=== PATIENT | female | born 1950 | race Caucasian/White ===

== ENCOUNTER 2016-09-04 12:21 | Inpatient (IN) | payer MEDICARE, MEDICAID ==
[~2016-09-04] VITALS: Ht 162.6 cm; Wt 42.0 kg
[2016-09-04] VITALS (8 sets, daily range): BP systolic 57–168; BP diastolic 43–106; PULSE 98–107; RESP 18–32; O2SAT 93–98
[2016-09-04] MEDS: Propofol Inj 1,000,000 MCG in IV Premix 1 EACH IV SCH
[~2016-09-04 12:21] MED LIST: CHOL100045 PO; ESTR1TAB5 PO; IBUP800T28 PO; KLO1T PO; MELA5TAB14 PO; MULT1CAP45 PO; OMEP40CA36 PO; OXYC1TAB91 PO; TRAZ-115 PO; VENL75TA3 PO; ZOLP10TA5 PO; diphenHYDramine PO
--- NOTE | 2016-09-04 12:27 | ED.REPORT ---
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 She has been treated with IVIG in the past with improvement of her neurologic symptoms. The patient is unable to provide a substantial history at this time. Neurologist: Dr. Moore Nursing Notes Stated Complaint: CONFUSION Nursing Notes Reviewed: Yes Allergies: Coded Allergies: No Known Allergies (Unverified Allergy, Unknown, 09/04/16) Scheduled Cholecalciferol (Vitamin D3) (Vitamin D) 1,000 Unit Capsule 1,000 UNIT PO DAILY Estrogens Conj/Medroxyprog 0.625-2.5 mg (Prempro 0.625-2.5 mg) 1 Each Tablet 1 TABLET PO DAILY Ibuprofen (Ibuprofen) 800 Mg Tablet 800 MG PO BID Melatonin (Melatonin) 5 Mg Tablet 20 MG PO HS Multivitamin with Minerals (Myvitalife) 1 Each Capsule 1 EACH PO DAILY Oxycodone HCl/Acetaminophen (Endocet 10-325 mg Tablet) 1 Each Tablet 1 EACH PO QID Trazodone (Trazodone) 50 Mg Tablet 50 MG PO HS Venlafaxine (Venlafaxine) 75 Mg Tablet 150 MG PO BID Zolpidem (Zolpidem) 10 Mg Tablet 5-10 MG PO HS Scheduled PRN ([diphenHYDramine]) 50 MG CAPSULE 50 MG PO HS PRN PRN Insomnia Clonazepam (Clonazepam) 1 Mg Tablet 0.5-1 MG PO BID PRN PRN For Anxiety Omeprazole (Omeprazole) 40 Mg Capsule.dr 40 MG PO BID PRN PRN For Dyspepsia or Heartburn General Time Seen by MD: 12:22 Chief Complaint Altered mental status Hx Obtained From: EMS Unable to Obtain Hx: Patient condition, Mental status Arrived By: Ambulance Sudden in Onset?: No Onset Occurred: Onset unknown Symptom Duration: Duration unknown Recent Healthcare: No recent hospitalization Similar Sx Previous: No Past Medical History Past Medical History Notes: Neurologist: Dr. Moore PCP: Dr. 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 Past Surgical History None Family History Noncontributory Smoking History Never Smoker Social History Alcohol Use: 1-3 per day Drug Use: Denies drug use Other Social History: Good social support, Lives alone, Local resident Ambulatory Status Independent Review of Systems Unable to Obtain ROS Patient condition, Mental status Full Review of Systems Neurologic: Reports: Confusion Physical Exam Vital Signs Vital Signs Date Time Temp Pulse Resp B/P Pulse Ox O2 Delivery O2 Flow Rate FiO2 09/04/16 12:37 36.7 98 18 160/97 93 Room Air Initial VS: Reviewed Head / Eyes: Atraumatic, Normocephalic, PERRL ENT: Mucous membranes moist, Conjunctiva normal, No scleral icterus Neck: Supple, Non-tender, Full range of motion Cardiovascular: Regular rate & rhythm, Heart sounds normal, Intact distal pulses Abdomen / GI: Soft, Non-tender, No guarding, No rebound, No distention Lymphatic: No lymphadenopathy Skin: Warm, Dry, No cyanosis General/Constitutional: Awake, Alert Appearance / Presentation: Positive: Cachectic She can't provide much history. No sign of trauma. Respiratory / Chest: Breath sounds = bilat, No respiratory distress, No rales, No rhonchi, No wheezing Diminished Breath Sounds: Positive: Decreased bilateral Upper Extremities Upper Extremity / MS: Neurologic intact, Vascular intact Significant muscle atrophy to both upper extremities. Lower Extremity / Pelvis / MS: Neurologic intact, Vascular intact Significant muscle atrophy to both lower extremities. She repeatedly points to her right hip but is unable to provide any additional history. NEURO: Her speech is minimally fluent and is difficult to understand. She has no lateralizing symptoms. Interpretation & Diagnostics Lab Results Interpretation Result Diagram: 09/04/16 1308 09/04/16 1308 Test 09/04/16 13:00 09/04/16 13:08 Urine Color Straw (YELLOW) Urine Appearance Hazy (CLEAR,HAZY) Urine pH 7.0 (5.0-8.0) Urine Specific [place] 1.020 (1.003-1.035) Urine Protein Negativemg/dL (NEG,TRACE) Urine Glucose (UA) Negativemg/dL (NEGATIVE) Urine Ketones 80mg/dL (NEGATIVE) Urine Occult Blood Moderate (NEGATIVE) Urine Nitrite Positive (NEGATIVE) Urine Bilirubin Negative (NEGATIVE) Urine Urobilinogen Normalmg/dL (NORMAL) Urine Leukocyte Esterase Small (NEGATIVE) Urine RBC 3-10/hpf (0-2) Urine WBC 6-10/hpf (0-5) Urine Epithelial Cells Few/hpf (NONE-MOD) Urine Crystals Amorphous urates (NONE Urine Bacteria Many/hpf (NONE-FEW) Urine Hyaline Casts None/lpf (NONE) Urine Granular Casts Occasional (NONE SEEN) Urine Waxy Casts None seen (NONE SEEN) Urine Red Blood Cell Casts None seen (NONE SEEN) Urine White Blood Cell Casts None seen (NONE SEEN) Urine Mucus None seen (None Seen) Urine Trichomonas None seen (NONE SEEN) Urine Yeast None (NONE SEEN) Urinalysis Comment None Urine Culture Reflexed Indicated White Blood Count 6.3th/mm3 (3.8-10.1) Red Blood Count 4.76mil/mm3 (3.90-5.20) Hemoglobin 14.4g/dL (12.0-15.6) Hematocrit 45.7% (35.0-46.0) Mean Corpuscular Volume 96.0fL (81-100) Mean Corpuscular Hemoglobin 30.3pg (27.0-35.0) Mean Corpuscular Hemoglobin Concent 31.5% (32.0-37.0) Red Cell Distribution Width 13.2% (12.3-15.4) Platelet Count 267bil/L (150-400) Neutrophils (%) (Auto) 84.3% (40-74) Lymphocytes (%) (Auto) 9.1% (14-46) Monocytes (%) (Auto) 6.0% (4-12) Eosinophils (%) (Auto) 0.2% (0-5) Basophils (%) (Auto) 0.2% (0-3) Sodium Level 141mEq/L (134-144) Potassium Level 3.4mEq/L (3.5-5.2) Chloride Level 94mEq/L (97-108) Carbon Dioxide Level 35mmol/L (18-29) Blood Urea Nitrogen 14mg/dL (8-27) Creatinine < 0.30mg/dL (0.57-1.00) Estimat Glomerular Filtration Rate 317mL/min (>59) Glucose Level 94mg/dL (60-99) Calcium Level 8.8mg/dL (8.5-10.1) Total Bilirubin 0.2mg/dL (0.0-1.2) Aspartate Amino Transf (AST/SGOT) 29U/L (0-50) Alanine Aminotransferase (ALT/SGPT) 23U/L (0-32) Alkaline Phosphatase 73U/L (25-165) Total Protein 7.7g/dL (6.4-8.4) Albumin 3.6g/dL (3.4-5.0) ECG Interpretation ECG Interpretation: Normal sinus rhythm with a rate of 98 Time: 13:17 Interpreted by: ED physician X-Ray Chest Interpretation Chest Xray Interpretation: IMPRESSION: Right medial lung base pneumonia. Follow up plain films of the chest are recommended to ensure resolution, and to exclude underlying or central malignancy. Dictated by: James Ibarra M.D. on 09/04/2016 at 13:27 Interpretation / Wet Read by: Interpret - Radiologist CT Head Interpretation IMPRESSION: No acute process. Dictated by: James Ibarra M.D. 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 She has been treated with IVIG in the past with improvement of her neurologic symptoms. She is followed by Dr. Moore. History is extremely limited due to patient's altered mental status. Upon arrival the patient is borderline tachycardic though otherwise afebrile. She is stating at 90% on room air requiring 2L supplemental oxygen. This is not her baseline. CXR shows right lung pneumonia CT head negative LABS: CBC unremarkable, BUN 14, creatinine 0.3, potassium 3.4, CO2 35, UA concerning for UTI. The patient's underlying neurologic disease and underlying apparent respiratory failure I opted to obtain NIF which was -12 (normal 20). That being said, the patient was noncooperative with obtaining NIF and continued to have good oxygen saturation on only 2 L by nasal cannula. I considered prophylactic intubation due to concern for impending respiratory failure however during the patient's emergency department course she became significantly more awake yelling at nurse 's and pulling out her IVs. Given this change in her behavior and seemed to is not in any immediate impending respiratory failure and therefore I opted to obtain arterial blood gases into for intubation for the moment. I discussed the patient with her neurologist Dr. moore who agreed with plan for admission and close respiratory observation. Given the patient's history and apparent pneumonia I initiated vancomycin and Zosyn for coverage of healthcare associated pneumonia. The patient remained hemodynamically stable. She was transferred to the critical care unit for further management and close observation. Due to her agitation and ripping out IVs she received 2 mg of intramuscular Haldol here in the emergency department with good effect. Source of Hx: Old records, EMS Consultation #1: Referral / Consult Name: Kj Moore MD Consulted With: Neurology Call Returned at: 13:56 Pressroom Worker: Agrees with eval, Agrees with plan Consultation #2: Referral / Consult Name: Paresh James MD Consulted With: Hospitalist Requested Call at: 13:42 Call Returned at: 14:37 Pressroom Worker: Will see patient, Agrees with eval, Agrees with plan, Accepts admit Counseled Regarding: Diagnosis, Lab results, Need for admission Discharge & Departure Primary Impression: Hypoxia Additional Impressions: Weakness Pneumonia Pneumonia type: due to unspecified organism Laterality: right Lung location : middle lobe of lung Qualified Code: J18.9 - Pneumonia, unspecified organism Agitation Respiratory failure Chronicity: unspecified Respiratory failure complication: hypercapnia Qualified Code: J96.92 - Respiratory failure, unspecified with hypercapnia Demyelinating nervous system disease or syndrome Disposition: ADMITTED TO HOSPITAL Discharge Condition All VS Reviewed: Yes Condition: Stable Referrals: Lennox Penaloza MD Crit Care Except Billable Proc Time Spent: 135-164 minutes Services Performed: Patient management by me, Time spent at bedside, Reviewing test results, Reviewing imaging, Discussing patient care, Documentation in record, Time with fam/surrogate Scribe Attestation Portions of this note were transcribed by Magda Olson. I, Dr. Nina personally performed the history, physical exam and medical decision-making; I reviewed and confirmed the accuracy of the information in the transcribed note. Signed by: Zully Del Rio, 09/04/2016 and 1520. copies to: Lennox Penaloza MD, Beck O MD Sep 04, 2016 12:27 Magda Olson Sep 04, 2016 12:30 Portions of this note were transcribed by Magda Olson. I, Dr. Nina personally performed the history, physical exam and medical decision-making; I reviewed and confirmed the accuracy of the information in the transcribed note. Signed by: Zully Del Rio, 09/04/2016 and 1520. copies to: Lennox Penaloza MD, Beck O MD Sep 04, 2016 12:27 Magda Olson Sep 04, 2016 12:30
[2016-09-04 13:21] LABS: BASOPHILS % (AUTO) 0.2 % (0-3); EOSINOPHILS % (AUTO) 0.2 % (0-5); Mean Corpuscular Hemoglobin 30.3 pg (27.0-35.0); NEUTROPHILS % (AUTO) 84.3 % (40-74); Platelet Count 267 bil/L (150-400)
--- NOTE | 2016-09-04 13:29 | DRSVH ---
PROCEDURE: X-RAY CHEST ONE VIEW, PORTABLE ([id number]) INDICATIONS: CONFUSION TECHNIQUE: One view of the chest was acquired. COMPARISON: None. FINDINGS: Surgical changes and devices: None. Lungs and pleura: No pleural effusions or pneumothorax. Patchy opacity at the right medial lung base . Mediastinum: Mediastinal contours appear normal. Heart size is normal. Bones and chest wall: No suspicious bony lesions. Overlying soft tissues appear unremarkable. IMPRESSION: Right medial lung base pneumonia. Follow up plain films of the chest are recommended to e nsure resolution, and to exclude underlying or central malignancy. Dictated by: James Ibarra M.D. on 09/04/2016 at 13:27 Approved by: James Ibarra M.D. on 09/04/2016 at 13:28
[2016-09-04] MEDS ORDERED: 0.9% Sodium Chloride 1,000 ML IV ONE ×2 (13:41→14:45)
[2016-09-04] MEDS ORDERED: Vancomycin Dose per Pharmacist XX ONE (13:45)
[2016-09-04] MEDS ORDERED: Piperacillin-Tazo 3.375 Gm Inj 3.375 GM in Dextrose 5% Minibag Plus 50 ML IV ONE (13:45)
--- NOTE | 2016-09-04 14:00 | PCM.CONPHA ---
Subjective Requesting Provider: Edgar Nina MD Reason for Pharmacy Consult: Vancomycin Dosing Assessment/Plan Assessment/Plan Vancomycin for empiric therapy in the ED for patient with mental status change, who has also received Zosyn 3.375Gm IV x 1. Wt=43Kg, serum creatinine <0.3 ( patient has demyelinating disease). WBC=6.3 Will give Vancomycin 1 Gram IV x 1. Pharmacy will follow if ordered when patient admitted. Shaniqua Castro [facility] Sep 04, 2016 14:00
[2016-09-04] MEDS ORDERED: Vancomycin 1 Gm/200 mL D5W Premix IV PRN (14:05)
--- NOTE | 2016-09-04 14:05 | DRSVH ---
PROCEDURE: CT BRAIN WITHOUT CONTRAST ([id number]) INDICATIONS: altered mental status TECHNIQUE: Noncontrast 4.5 mm thick angled axial sections acquired from the foramen magnum to the vertex, with c oronal reformats. COMPARISON: [facility], CT, CT BRAIN WO CON, 06/06/2016, 0:09. FINDINGS: Image quality: Excellent. CSF spaces: Basal cisterns are patent. No extra-axial fluid collections. The ventricles are symmet jim in size and shape. Brain: No intracranial bleeds or masses. There is cerebral volume loss for age, with resultant vent ricular and sulcal prominence. There are periventricular and deep white matter chronic small vessel ischemic changes. There is intracranial internal carotid artery atherosclerosis. Skull and face: Calvarium and visualized facial bones appear intact, without suspicious lesions. Sinuses: Visualized sinuses and mastoids are clear. IMPRESSION: No acute process. Dictated by: James Ibarra M.D. on 09/04/2016 at 14:03 Approved by: James Ibarra M.D. on 09/04/2016 at 14:04
[2016-09-04 14:15] LABS: APPEARANCE,URINE HAZY (CLEAR,HAZY); COLOR,URINE STRAW (YELLOW); OCCULT BLOOD,URINE MODERATE (NEGATIVE); UROBILINOGEN,URINE NORMAL (NORMAL)
[2016-09-04] MEDS: Haloperidol 5 mg/mL Inj IM PRN ×2 (14:35→15:38)
[2016-09-04] MEDS ORDERED: Alum-Mag Hydrox-Simeth 30 mL Suspension PO PRN ×2 (15:05)
[2016-09-04] MEDS ORDERED: Ondansetron 2 mg/mL 2 mL Inj IVPUSH PRN ×2 (15:05)
[2016-09-04] MEDS ORDERED: Polyethylene Glycol (PEG) 17 Gm Powder PO PRN ×2 (15:05)
[2016-09-04 15:50] LABS: Ammonia 78 ug/dL (18-53)
--- NOTE | 2016-09-04 15:55 | ABG ---
DateTimeAnalyzed 15:49:00 -_ pH ____7.330 - 7.350 7.450 pCO2 ___70.3__ -mmHg 35.0 45.0 pO2 ___98.3__ -mmHg 69.0 116 HCO3- ___36.0__ -mmol/L 22.0 26.0 ABE ____8.1__ -mmol/L -2.0 2.0 tHb ___12.5__ -g/dL O2Hb ___95.8__ -% COHb ____1.2__ -% MetHb ____0.9__ -% sO2 ___97.9__ -% FIO2 ___28.0__ -% Drawn By MT - Date/Time Notified____ 15:54:00 -_ Oxygen Device 1 __CANNULA - Notified By MT - Notified Whom ___Dr. [place] - B 767 -mmHg tO2 ___16.9__ -Vol%
[2016-09-04] MEDS ORDERED: ACET325C PO (17:05)
[2016-09-04] MEDS ORDERED: TAMS0.4C98 PO (17:05)
[2016-09-04] MEDS: Vancomycin Dose per Pharmacist XX SCH (18:20)
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
[2016-09-04] MEDS ORDERED: Vancomycin Inj 1,000 MG in IV Premix 1 EACH IV ONE (19:30)
[2016-09-04] MEDS ORDERED: 0.9% Sodium Chloride 250 ML ONE (19:30)
--- NOTE | 2016-09-04 19:37 | PCM.CONPHA ---
Subjective Requesting Provider: Kaia Warner DO Reason for Pharmacy Consult: Vancomycin Dosing Assessment/Plan Assessment/Plan Vancomycin for healthcare associated pneumonia with goal trough of 15-20: Ht 64 inches Wt 46.5K Sr Cr<0.3 (demyelinating disease) so 0.8 used for calculations. Creatinine clearance estimated at 49ml/min. WBC=6.3 Patient also on Zosyn. Vancomycin 1 Gram IV load not given in ER, but given on floor instead. Subsequent dosing is 750mg IV daily, which may produce a trough at the lower end of the goal, depending upon true renal function. A trough has been ordered for 192909/07/16. A pharmacist will adjust dosing as necessary. Shaniqua Castro [facility] Sep 04, 2016 19:37
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
[2016-09-04] MEDS ORDERED: Pantoprazole 40 mg ER24 Tablet PO PRN (19:55)
[2016-09-04] MEDS ORDERED: VENLAFAXINE 150 MG PO SCH (20:30)
[2016-09-04] MEDS: oxyCODONE-Acetamin 10-325 mg Tablet PO SCH (21:30)
[2016-09-04] MEDS ORDERED: 0.9% Sodium Chloride 1,000 ML ONE (23:21)
[2016-09-05] VITALS (14 sets, daily range): BP systolic 96–124; BP diastolic 68–80; PULSE 85–104; RESP 10–14; O2SAT 95–100
[2016-09-05 00:01] LABS: BASOPHILS % (AUTO) 0 % (0-3); EOSINOPHILS % (AUTO) 0 % (0-5); MONOCYTES % (AUTO) 2.6 % (4-12); Mean Corpuscular Hemoglobin 29.8 pg (27.0-35.0); Mean Corpuscular Volume 96.6 fL (81-100); Platelet Count 276 bil/L (150-400)
--- NOTE | 2016-09-05 00:19 | ABG ---
DateTimeAnalyzed 00:14:00 -_ pH ____7.511 - 7.350 7.450 pCO2 ___37.3__ -mmHg 35.0 45.0 pO2 342 -mmHg 69.0 116 HCO3- ___29.6__ -mmol/L 22.0 26.0 ABE ____6.6__ -mmol/L -2.0 2.0 tHb ___12.3__ -g/dL O2Hb ___97.9__ -% COHb ____1.1__ -% MetHb ____0.9__ -% sO2 ___99.9__ -% FIO2 __100.0__ -% PRVC 20 - PEEP ____5.0__ -cmH2O Vt __380.0__ -L Drawn By blf - Date/Time Notified____ 00:19:00 -_ Spontaneous_RR ___20.0__ -b/min Oxygen Device 1 VENTILATOR - Notified By blf - Notified Whom Arnoldo Elma RN -____ B 768 -mmHg tO2 ___17.8__ -Vol% Lennox test N/A -
[2016-09-05 00:32] LABS: Phosphorus 2.2 mg/dL (2.5-4.9)
[2016-09-05] MEDS: Chlorhexidine 0.12% 15 mL Oral Solution MT SCH ×6 (00:48→20:35)
--- NOTE | 2016-09-05 01:02 | ER ---
[address] [address] EMERGENCY DEPT ADMIT NOTE PATIENT: CAPO THOMPSON : 1950 MR#: [id number] ADMIT: 09/04/2016 JOB ID: [id number] PROCEDURE: Endotracheal intubation. DESCRIPTION OF PROCEDURE: I was asked to see this patient urgently by the Medicine attending who found her in agonal respiration on evaluation. She requires endotracheal intubation and is unconscious at this point. She was bagged up to 100% saturation without difficulty. After determining that her potassium is normal, she received etomidate 20 mg IV and then succinylcholine 120 mg IV for rapid sequence induction. She had good relaxation, and good induction. A 7.5 tube was placed under direct visualization through the cords without difficulty, and placement verified by end-tidal CO2 and auscultation. The balloon was inflated. It was secured in place at 22 cm at the corner of the mouth. She tolerated this well and is awaiting confirmatory x-ray at this time. Care was returned to the medicine service.
[2016-09-05] MEDS ORDERED: 0.9% Sodium Chloride 1,000 ML IV SCH (01:05)
[2016-09-05] MEDS: Piperacillin-Tazo 3.375 Gm Inj 3.375 GM in Dextrose 5% Minibag Plus 50 ML IV SCH ×3 (01:07→16:43)
[2016-09-05] MEDS: fentaNYL 2,500 mCg/250 mL 2,500 MCG in IV Premix 1 EACH IV SCH (01:17)
--- NOTE | 2016-09-05 02:02 | NUR ---
Transfer note/intubation: Pt was transferred to room 2011 at 2330 per CCU bed. Pt was being ventilated by RT with BVM. Pt placed on monitor shows ST/SR with spo2 of high 80 to low 90s and jumped up to 100% after being bagged for short period prior to getting sedated with 120mg of sucs and 20mg of etomidate. ED doctor intubated with 7.5 ETT taped at 22cm at the teeth. Pt was given NS bolus of 1000mls and started on propofol and fentanyl gtts for sedation. OG was placed with small creamy yellow drainage and mcwilliams inserted with good urine return. Restraints applied to bilateral wrist.
[2016-09-05 02:56] LABS: Mean Corpuscular Hemoglobin 29.5 pg (27.0-35.0); Mean Corpuscular Volume 95.7 fL (81-100)
[2016-09-05 04:02] LABS: Magnesium 1.8 mg/dL (1.6-2.6)
[2016-09-05] MEDS ORDERED: Potassium Phos (mEq) Inj 40 MEQ in Dextrose 5% 500 ML IV ONE (04:20)
--- NOTE | 2016-09-05 04:37 | ABG ---
DateTimeAnalyzed 04:33:00 -_ pH ____7.522 - 7.350 7.450 pCO2 ___34.7__ -mmHg 35.0 45.0 pO2 ___94.7__ -mmHg 69.0 116 HCO3- ___28.3__ -mmol/L 22.0 26.0 ABE ____5.7__ -mmol/L -2.0 2.0 tHb ___12.8__ -g/dL O2Hb ___96.7__ -% COHb ____1.1__ -% MetHb ____1.0__ -% sO2 ___98.8__ -% FIO2 ___60.0__ -% PRVC 16 - PEEP ____5.0__ -cmH2O Vt __350.0__ -L Drawn By blf - Date/Time Notified____ 04:37:00 -_ Spontaneous_RR ___16.0__ -b/min Oxygen Device 1 VENTILATOR - Notified By blf - Notified Whom JOAQUIN EVARISTO RN -____ B 767 -mmHg tO2 ___17.5__ -Vol% Lennox test N/A -
[2016-09-05] MEDS: oxyCODONE-Acetamin 10-325 mg Tablet PO SCH ×4 (05:57→20:29)
[2016-09-05] MEDS ORDERED: KCl 40 mEq/D5W 500 mL 40 MEQ in IV Premix 500 EACH IV ONE (06:45)
[2016-09-05] MEDS: MedroxyPROGESTERone 5 mg Tablet PO SCH (07:50)
[2016-09-05] MEDS: Vancomycin Dose per Pharmacist XX SCH (07:51)
--- NOTE | 2016-09-05 08:10 | DRSVH ---
PROCEDURE: X-RAY CHEST ONE VIEW, PORTABLE ([id number]) INDICATIONS: intubation TECHNIQUE: One view of the chest was acquired. COMPARISON: [facility], CR, XR CHEST 1VW (PORTABLE), 09/05/2016, 8:03. [facility], CR, XR CHEST 1VW (PORTABLE), 09/04/2016, 12:54. FINDINGS: Surgical changes and devices: ETT present tip projected 3.9 cm of the benedicto. Serpiginous metallic r adiodensity projected over the left shoulder and upper lateral chest likely external to the patient. Lungs and pleura: No pleural effusions or pneumothorax. Lungs are clear. Right hemidiaphragm is el evated. Mediastinum: Mediastinal contours appear normal. Heart size is normal. Bones and chest wall: No suspicious bony lesions. Overlying soft tissues appear unremarkable. Ther e is a large amount of air within the stomach. IMPRESSION: Placement of ETT. No definite acute cardiopulmonary process. Dictated by: Deandre Russell Katie Interpreted: Wm Todd MD on 09/05/2016 at 8:08 Transcribed by: LAYNE on 09/05/2016 at 8:10 Approved by: Wm Todd M.D. on 09/05/2016 at 9:22
[2016-09-05] MEDS ORDERED: Non-Formulary Medication (Cholecalciferol (Vitamin D3) (Vitamin D) 1,000 UNIT) PO SCH (08:30)
[2016-09-05] MEDS ORDERED: [UNRECOGNIZED DRUG - OTHER] PO SCH (08:30)
[2016-09-05] MEDS ORDERED: MULTIVITAMIN WITH MINERALS PO SCH (08:30)
[2016-09-05] MEDS ORDERED: CONJUGATED ESTROGENS PO SCH (08:30)
[2016-09-05] MEDS ORDERED: MEDROXYPROGESTERONE PO SCH (08:30)
--- NOTE | 2016-09-05 08:44 | DRSVH ---
PROCEDURE: X-RAY CHEST ONE VIEW, PORTABLE ([id number]) INDICATIONS: Post intubation to verify ETT placement TECHNIQUE: One view of the chest was acquired. COMPARISON: [facility], CR, XR CHEST 1VW (PORTABLE), 09/04/2016, 23:32. FINDINGS: Surgical changes and devices: ETT tube tip projected 5.7 cm above the benedicto. Nasogastric tube has b een placed tube tip projected over the gastric fundus. Lungs and pleura: No pleural effusions or pneumothorax. Medial left basilar airspace opacity presen t otherwise lungs are clear and hyperinflated. Mediastinum: Mediastinal contours appear normal. Heart size is normal. Bones and chest wall: No suspicious bony lesions. Overlying soft tissues appear unremarkable. IMPRESSION: 1. Medial left basilar atelectasis versus aspiration or pneumonia. Correlate clinically. Dictated by: Deandre Russell [facility] Interpreted: Eileen Starkey MD on 09/05/2016 at 8:41 Transcribed by: MARIA FERNANDA on 09/05/2016 at 8:43 Approved by: Eileen Starkey MD, PhD on 09/05/2016 at 17:04
[2016-09-05] MEDS: Propofol Inj 1,000,000 MCG in IV Premix 1 EACH IV SCH ×2 (08:50→23:23)
[2016-09-05] MEDS: Heparin 5,000 Unit/mL Inj SUBQ SCH ×2 (08:50→16:43)
[2016-09-05] MEDS: Famotidine Inj 20 MG in IV Premix 1 EACH IV SCH ×2 (09:41→20:35)
--- NOTE | 2016-09-05 09:54 | NUR ---
NUTRITION ASSESSMENT Assess: 66 YO F admitted to CCU for hypoxia, weakness, altered mental status, and PNA requiring intubation. Enteral feeding to start today per verbal order Dr. Purcell. Plan for CT today and possible PS trial per CCU rounds. PMHX: Neuromuscular demyelinating polyneuropathy, multiple falls, dehydration, major depressive disorder, insomnia. DIET: NPO. LABS: Na 146, K+ 2.5, Glu 115 MEDICATIONS: Fentanyl, Propofol at ~ 8 ml/hr providing 211 kcal/day. GI: 2 BM 09/04. SKIN: Red, non-blanchable area on medial buttock per notes. Wound eval pending. WEIGHT: 46.5 kg, BMI 17.6 kg/mg2 = underweight, Admit wt: 46.5 kg, IBW: 54.5 kg (85.3%) ESTIMATED NEEDS: Underweight/Wound/Vent. Calories: 930-1395 kcal/day (20-30 kcal/kg BW) Protein: 82-98 g/day (1.5-1.8 g/kg IBW) NUTRITION DIAGNOSIS: 1) Inadequate oral intake related to decreased ability to consume sufficient energy as evidenced by NPO/Vent status. INTERVENTION: 1) Recommend enteral feeding of Vital High Protein starting at 10 ml/hr, hold for 24 hr, once tolerance established advance 10 ml q 8 hr to goal rate of 50 ml/hr. At goal TF will provide 1100 kcal (TF+Propofol= 1311 kcal/day), 96 g protein; meeting 100% of calorie/protein needs. Signed orders to be placed in chart. Recommend slow advancement to avoid refeeding syndrome due to current underweight BMI. 2) Adjust enteral feeding rate based on daily Propofol rate. 3) If needed, will adjust estimated needs based on wound evaluation. MONITOR/EVALUATE: NPO/Vent status, TF start, labs, wounds, wt, POC, GI/nutrition status. Follow per high nutrition risk guidelines.
[2016-09-05 10:26] LABS: Phosphorus 2.7 mg/dL (2.5-4.9)
[2016-09-05] MEDS ORDERED: Potassium Chloride 20 mEq/15 mL 15mL Oral Soln NGTUBE ONE (10:55)
[2016-09-05] MEDS ORDERED: KCl 40 mEq/D5W 500 mL 40 MEQ in IV Premix 1 EACH IV ONE (11:35)
[2016-09-05] MEDS: Dexamethasone 4 mg/mL Inj IV SCH (11:36)
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
[2016-09-05] MEDS: PRIVIGEN IV SCH (12:21)
[2016-09-05] MEDS ORDERED: Potassium Chloride Inj 20 MEQ in Dextrose 5% 250 ML IV ONE (12:30)
--- NOTE | 2016-09-05 13:26 | NUR ---
Wound Care Received order for wound care evaluation for sacrum/buttocks. Patient found with large area of nonblanchable redness to sacrum, present on admission. Stage I pressure injury measures 15cmW x 9.8cm L. No open area noted. Patient noted with inc firmness and possibly area of fluctuance to right side. Nursing aware. Applied sacral Mepilex to red area. Wound care to follow up as needed. Nursing to change dressing q48 hours and as needed for soiling. Patient currently on CCU BRANDON bed. Turn q2 hours to decrease pressure to sacrum/buttocks.
[2016-09-05 15:43] LABS: Magnesium 1.6 mg/dL (1.6-2.6)
[2016-09-05] MEDS ORDERED: Magnesium Sulf 2 Gm/50mL Water 2 GM in IV Premix 1 EACH IV ONE (16:00)
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
--- NOTE | 2016-09-05 17:48 | CONS ---
[address] [address] CONSULTATION REPORT PATIENT: CAPO THOMPSON : 1950 MR#: [id number] ADMIT: 09/04/2016 JOB ID: [id number] DATE OF SERVICE: 09/05/2016 PULMONARY CRITICAL CARE CONSULTATION NOTE The patient is a 66-year-old woman seen in consultation at the request of Dr. Charles for acute respiratory failure requiring mechanical ventilation. The patient was seen and evaluated with resident physician, Dr. Brett Whitney, please refer to his separate detailed note for additional information. The following is an addendum. HISTORY OF PRESENT ILLNESS: The patient is a 66-year-old woman with chronic demyelinating polyneuropathy for which she is followed by Dr. Jimenez, presenting to the hospital from her nursing facility for altered mental status as well as shortness of breath and hypoxia. The patient is currently intubated so all of the history is obtained per review of medical records. She was reportedly diagnosed with demyelinating polyneuropathy in 2014. She has had recent IVIG infusions most recently last week and prior to that in July for this problem. She presented yesterday with confusion, episodes of hypoxia and encephalopathy. Over the course of the ED stay, reportedly her mentation improved and she was actually agitated, pulling out IVs etc., but subsequently calmed with some Haldol. She was brought up to the floor and at some point was found unresponsive with agonal breathing. It is not clear that this was precipitated by any medications. Prior to that, the patient was only on 2 L nasal cannula. She has also received antibiotics for presumed pneumonia. Because of this episode, the patient was intubated and placed on mechanical ventilation. She received 1 L of IV fluid but did not have any pressor requirement or any additional hypotension. She is currently sedated on propofol and fentanyl. PAST MEDICAL HISTORY: Per review of records. 1. Chronic inflammatory demyelinating polyneuropathy followed by Dr. Jimenez since 2014, treated with IVIG. 2. Depression. 3. Falls. SOCIAL HISTORY/FAMILY HISTORY/REVIEW OF SYSTEMS: Could not be obtained since the patient is intubated. Per review of records, the patient is a nonsmoker. PHYSICAL EXAMINATION: Vital signs reviewed. Temperature 37.2, pulse 112, respirations 14, BP 120/78, sats 100% on 50% FiO2. General: Intubated, sedated currently but after turning off the propofol and fentanyl the patient awakens easily, eyes are wide open and she nods and tracks, follows commands. Neck: No cervical lymphadenopathy. Chest: Clear to auscultation bilaterally. Heart: Regular rate, rhythm. No murmurs. Abdomen: Soft, nontender. No organomegaly. Extremities: No cyanosis, clubbing, or edema. Skin: No rashes. LABORATORIES: Reviewed. WBC 10.4, hemoglobin 12.9, platelets 237. Chemistry also reviewed and notable for potassium 2.5. Creatinine normal. Procalcitonin is pending. Cultures including sputum and two blood cultures are pending. Chest x-ray reviewed and shows slightly elevated right hemidiaphragm. ET tube in appropriate position. Pulmonary parenchyma looks clear to me. I do not really appreciate a right-sided infiltrate although this was read by the radiologist. Arterial blood gas from this morning shows pH 7.52, pCO2 of 34, pO2 of 94, bicarb of 28. ASSESSMENT/RECOMMENDATIONS: 1. Acute hypoxic respiratory failure. 2. Severe sepsis. 3. Presumed community-acquired pneumonia. 4. Chronic inflammatory demyelinating polyneuropathy. A 66-year-old woman with chronic demyelinating polyneuropathy treated with IVIG in the past presenting with altered mental status, hypoxia and respiratory failure. She was presumptively diagnosed with pneumonia in the emergency department, but I am not really impressed with her chest x-ray infiltrate. I would like to look for other causes of respiratory failure including pulmonary embolus. We will go ahead and get a CT pulmonary angiogram, looking for blood clots or other sources. She has a procalcitonin that is still pending at this time. She is currently on vancomycin and Zosyn, but I think she needs atypical coverage as well so we will add azithromycin. From a vent standpoint, she has an iatrogenic respiratory alkalosis so we turned down her respiratory rate significantly to 10. Depending on how she does with this, I think we can try to check a NIF, vital capacity and do a pressure support trial. It is not clear to me entirely if she ended up on the ventilator because of neuromuscular reasons or truly respiratory failure due to pulmonary infection. We will turn off all of her sedation and neurologically she seemed to be tolerating this quite well. We will start tube feeds now. She is on appropriate DVT and GI prophylaxis. She is a FULL CODE. We have social work administrator involved to figure out legal next of kin, etc. CRITICAL CARE TIME: 50 minutes. EDEN
--- NOTE | 2016-09-05 17:59 | NUR ---
P: Respiratory Distress I: Sedation turned all the way off and pt did not breath more than the vent was set for. Dr. Purcell here to see the pt and do a good neuro exam while pt off sedation and then she was placed back on propofol 20 mcqs/kg/min and fentanyl 25mcqs/hr. IGG infused. Kphos rider infused and 40 mEq of KCL also infused. Magnesium 2 gm IV infused as well. Turned q 2 hours. Wound care here and mepilex applied. No BM's. Tube feeding infusing at 10cc/hr with minimal residuals. Turned q [address]/NSR. Low grade temp. Blood culture drawn. E:Stable S: Restraints on for pt safety. Frequent rounding.
[2016-09-05] MEDS ORDERED: 0.9% Sodium Chloride 250 ML ONE (20:51)
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
[2016-09-05 23:27] LABS: Magnesium 2.1 mg/dL (1.6-2.6)
[2016-09-05] MEDS ORDERED: Heparin 5,000 Unit/mL Inj IVPUSH PRN (23:40)
[2016-09-06] VITALS (10 sets, daily range): BP systolic 97–138; BP diastolic 65–92; PULSE 84–112; RESP 10–26; O2SAT 98–100
[2016-09-06] MEDS: fentaNYL 2,500 mCg/250 mL 2,500 MCG in IV Premix 1 EACH IV SCH ×2 (00:20→22:29)
[2016-09-06] MEDS: Chlorhexidine 0.12% 15 mL Oral Solution MT SCH ×6 (00:20→20:30)
[2016-09-06] MEDS: Piperacillin-Tazo 3.375 Gm Inj 3.375 GM in Dextrose 5% Minibag Plus 50 ML IV SCH ×2 (00:20→07:57)
[2016-09-06] MEDS: Heparin 25K Unit/500mL 0.45 NS 25,000 UNIT in IV Premix 1 EACH IV SCH (00:21)
--- NOTE | 2016-09-06 04:17 | ABG ---
DateTimeAnalyzed 04:12:00 -_ pH ____7.472 - 7.350 7.450 pCO2 ___47.7__ -mmHg 35.0 45.0 pO2 189 -mmHg 69.0 116 HCO3- ___34.5__ -mmol/L 22.0 26.0 ABE ____9.8__ -mmol/L -2.0 2.0 tHb ___11.2__ -g/dL O2Hb ___97.9__ -% COHb ____0.7__ -% MetHb ____0.9__ -% sO2 ___99.5__ -% FIO2 ___50.0__ -% PRVC 10 - PEEP ____5.0__ -cmH2O Set_RR ___10.0__ -b/min Vt __300.0__ -L Drawn By MM - Spontaneous_RR ___10.0__ -b/min Oxygen Device 1 NASAL CPAP - B 763 -mmHg tO2 ___15.9__ -Vol%
--- NOTE | 2016-09-06 04:18 | ABG ---
DateTimeAnalyzed 04:12:00 -_ pH ____7.472 - 7.350 7.450 pCO2 ___47.7__ -mmHg 35.0 45.0 pO2 189 -mmHg 69.0 116 HCO3- ___34.5__ -mmol/L ABE ____9.8__ -mmol/L tHb ___11.2__ -g/dL O2Hb ___97.9__ -% COHb ____0.7__ -% MetHb ____0.9__ -% sO2 ___99.5__ -% FIO2 ___50.0__ -% Drawn By MM - B 763 -mmHg tO2 ___15.9__ -Vol%
--- NOTE | 2016-09-06 04:28 | ABG ---
DateTimeAnalyzed 04:12:00 -_ pH ____7.472 - 7.350 7.450 pCO2 ___47.7__ -mmHg 35.0 45.0 pO2 189 -mmHg 69.0 116 HCO3- ___34.5__ -mmol/L 22.0 26.0 ABE ____9.8__ -mmol/L -2.0 2.0 tHb ___11.2__ -g/dL O2Hb ___97.9__ -% COHb ____0.7__ -% MetHb ____0.9__ -% sO2 ___99.5__ -% FIO2 ___50.0__ -% Drawn By MM - Date/Time Notified____ 04:27:00 -_ Oxygen Device 1 VENTILATOR - Notified By MM - Notified Whom JOAQUIN, RN - B 763 -mmHg tO2 ___15.9__ -Vol% Lennox test N/A -
[2016-09-06] MEDS: oxyCODONE-Acetamin 10-325 mg Tablet PO SCH ×4 (04:52→21:22)
[2016-09-06 05:41] LABS: BASOPHILS % (AUTO) 0.2 % (0-3); EOSINOPHILS % (AUTO) 0.6 % (0-5); MONOCYTES % (AUTO) 8.2 % (4-12); Mean Corpuscular Volume 92.6 fL (81-100); NEUTROPHILS % (AUTO) 63.2 % (40-74); Platelet Count 207 bil/L (150-400)
[2016-09-06 06:38] LABS: Magnesium 2.1 mg/dL (1.6-2.6); Phosphorus 1.9 mg/dL (2.5-4.9)
--- NOTE | 2016-09-06 06:41 | NUR ---
CT/sedation: Pt is lightly sedated is comfortable on vent is able to respond and follow commands. Pt was taked to CT for scan of chest to rule out PE. Pt did have small right upper lobe PE and was started on heparin gtt with out bolus. After first recheck of PTT pt was in therapeutic range.
[2016-09-06] MEDS ORDERED: DEXTROSE 5% IV ONE (06:45)
[2016-09-06] MEDS ORDERED: POTASSIUM PHOS IV ONE (06:45)
[2016-09-06] MEDS ORDERED: 0.9% Sodium Chloride 250 ML ONE (07:49)
[2016-09-06] MEDS: PRIVIGEN IV SCH (07:56)
[2016-09-06] MEDS: Dexamethasone 4 mg/mL Inj IV SCH (07:56)
[2016-09-06] MEDS: Famotidine Inj 20 MG in IV Premix 1 EACH IV SCH ×2 (07:56→21:23)
[2016-09-06] MEDS: MedroxyPROGESTERone 5 mg Tablet PO SCH (07:58)
[2016-09-06] MEDS: Vancomycin Dose per Pharmacist XX SCH (08:00)
[2016-09-06] MEDS: Propofol Inj 1,000,000 MCG in IV Premix 1 EACH IV SCH (08:23)
--- NOTE | 2016-09-06 08:51 | DRSVH ---
PROCEDURE: CT ANGIO CHEST PULMONARY EMBOLISM ([id number]) INDICATIONS: hypoxic failure, concern for PE TECHNIQUE: After the administration of intravenous contrast, 2 mm thick sections acquired from the pulmonary api brigitte to the posterior costophrenic angles. 3-dimensional maximum intensity projection (MIP) coronal a nd sagittal reformats were then acquired through the thorax. For radiation dose reduction, the follo wing was used: automated exposure control, adjustment of mA and/or kV according to patient size. COMPARISON: Chest 131 [id number] hrs. FINDINGS: Preliminary report by film processing shift supervisor radiology Image quality: Excellent. Pulmonary arteries: Pulmonary arteries are normal in size, and demonstrate no intraluminal filling d efects to suggest central pulmonary embolism. Lungs and pleura: Endotracheal tube is present. Lungs show dense consolidation in the posterior right lower lobe. Mild patchy pleural-parenchymal density in the posterior left lower lobe. There is a rem ote overlying fracture deformity of the left ninth rib raising possibility of pleural scar. No pleura l effusions or pneumothorax. Central and peripheral airways are patent. Mediastinum: Heart size is normal, without pericardial effusion. No mediastinal or hilar adenopathy . Thoracic aorta is normal in caliber and enhancement. Esophagus is normal in caliber, without hiat al hernia. Bones and chest wall: Bilateral breast implants. No suspicious bony lesions. Ribs and thoracic spin e appear intact throughout. Thyroid gland appears normal in size. No axillary or supraclavicular ad enopathy. Abdomen: Visualized upper abdominal solid organs appear normal in the early arterial phase of enhanc ement. Nasogastric tube is present with tip in the stomach. Multiple small gallstones. IMPRESSION: 1. Exam is positive for pulmonary embolic disease, showing low clot volume at a branch in the right u pper lobe vessel. No additional emboli seen. 2. Posterior right lower lobe consolidation suspect for pneumonia, aspiration or infarction. Small co nsolidation in the left lower lobe could be atelectatic, scar tissue or inflammatory process. 3. Endotracheal and nasogastric tubes appear in position 4. Cholelithiasis. 5. Bilateral augmentation implants. 6. Old fractures left eighth and ninth posterior ribs. Findings are concordant with the preliminary report Dictated by: Raymond Almaraz M.D. on 09/06/2016 at 8:27 Approved by: Raymond Almaraz M.D. on 09/06/2016 at 8:49
[2016-09-06] MEDS ORDERED: Sodium Chloride LOK Flush 10 mL Syringe IVFLUSH PRN ×2 (09:35)
--- NOTE | 2016-09-06 09:50 | DRSVH ---
PROCEDURE: X-RAY CHEST ONE VIEW, PORTABLE ([id number]) INDICATIONS: intubated TECHNIQUE: One view of the chest was acquired. COMPARISON: [facility], CR, XR CHEST 1VW (PORTABLE), 09/05/2016, 8:03. FINDINGS: Surgical changes and devices: Stable positioning of ETT and nasogastric tube. Lungs and pleura: No pleural effusions or pneumothorax. Lungs are clear. Elevation right hemidiaph ragm redemonstrated. Lung volumes are increased with flattening of the hemidiaphragms suggesting COPD . Mediastinum: Mediastinal contours appear normal. Heart size is normal. Bones and chest wall: No suspicious bony lesions. Overlying soft tissues appear unremarkable. Mult iple healed left posterior lateral fractures redemonstrated. IMPRESSION: Probable COPD. No definite acute cardiopulmonary process. Dictated by: Deandre BELLA Interpreted: Steven Almaraz MD on 09/06/2016 at 9:48 Transcribed by: LIZ on 09/06/2016 at 9:49 Approved by: Raymond Almaraz M.D. on 09/06/2016 at 14:15
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
[2016-09-06] MEDS ORDERED: Haloperidol 5 mg/mL Inj IVPUSH PRN (10:45)
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
--- NOTE | 2016-09-06 12:05 | CONS ---
[address] [address] CONSULTATION REPORT PATIENT: CAPO THOMPSON : 1950 MR#: [id number] ADMIT: 09/04/2016 JOB ID: [id number] DATE OF SERVICE: 09/06/[address] Purcell for this consult. REASON FOR CONSULT: Possible right-sided pneumonia in a patient with severe neuromuscular disease. HISTORY OF PRESENT ILLNESS: The patient is an unfortunate, 66-year-old woman, with longstanding demyelinating neuromuscular polyneuropathy. She has been residing lately at [facility] here in [facility]. The patient has received immune therapies in the past including IVIG for control of her polyneuropathy and weakness. The patient was transferred here on the because of reported confusion, shortness of breath and progressive weakness to the point where she could not adequately ventilate or protect her airway. The patient improved somewhat in the ED when she was given supplemental oxygen, but was very confused and combative. A chest x-ray suggested the possibility of pneumonia, and shortly thereafter, the patient was intubated because of progressive shortness of breath. Prior to her intubation, apparently the patient was quite confused and it was difficult to obtain any additional significant history. Today, the patient is examined while she is intubated and sedated on the ventilator in the ICU. Interestingly, she is awake. Her neuromuscular disease is so severe that she can just barely wiggle her head back a little bit to indicate yes or no, but she does seem to be accurate when asked a variety of questions, and she tells us this morning that prior to her transfer here on admission two days ago, she did not have fevers, chills, or productive cough. She does report that she was becoming increasingly weak and short of breath prior to her transfer and admission here. She additionally denies having had any nausea, vomiting, diarrhea, or chest pain prior to admission. At this point, the history taking is very difficult because it requires a lot of effort for the patient to even wiggle her head yes or no, and so we curtailed the history taking after some point when it no longer feasible. PAST MEDICAL HISTORY: 1. Chronic and progressive demyelinating polyneuropathy. 2. Malnutrition. 3. History of major depression. 4. History of multiple falls. SOCIAL HISTORY: The patient is a nonsmoker, and she affirms this to us again today. Notes in the chart indicate that she does consume alcohol when she is at home, but she has been at [facility] for a period of time, so that seems unlikely now. We were unable to confirm this with the patient. Also notes in the chart indicate she denies illicit drug use. FAMILY HISTORY: The patient states that in her family, which includes her parents and siblings, there is no history of TB. REVIEW OF SYSTEMS: Was done with great difficulty, as the patient is so weak. She denies having significant headache, sinus complaints, fevers, chills, cough, chest pain, nausea, vomiting, diarrhea. The remainder of the review of systems was either unobtainable or negative given her profound weakness. PHYSICAL EXAMINATION: Reveals a very thin woman whose BMI is 17.9, and her weight is only 47 kg. She is lying supine in her ICU bed, intubated and minimally sedated. Her facial expression would seem to suggest fear more than anything else, as she flinches when touched and appears hypervigilant with her eyes wide open, and constantly switching from person to person in the room. There is no evidence for head trauma. There is some temporal wasting noted. The eyes are without conjunctivitis or scleral icterus. The extraocular movements are certainly intact. Sinuses are nontender. Nose without eschar. Oral cavity with endotracheal tube, oral gastric tube. Neck without adenopathy or significant JVD. Lungs fairly clear. Perhaps a few crackles at the right base but not much. Cardiac tones regular rate and rhythm without murmur. Abdomen is thin, soft, nontender, without organomegaly or ascites. She does have a Monteiro catheter. No suprapubic abnormality is noted. The extremities are very thin, but well-perfused. She appears to have bilateral foot drop and, when asked, she cannot even move her feet, though she obviously can move her hands a little bit, and also shake her head slowly from side to side with some difficulty. Aside from the profound weakness, we are not able to formally check her sensation given that she is on the ventilator and it is difficult to communicate with her. There is no evidence for synovitis or inflammation of the joints, and no skin rash is noted. LABORATORY DATA: Labs include white count 6000 on admission, now 5000. Normal diff is noted. Creatinine less than 0.3, consistent with her wasting. Procalcitonin less than 0.1 on two separate measurements. LFTs are normal. Urinalysis with 6-10 white cells. Blood cultures are negative. Sputum is growing Staph aureus in light quantities, which I predict will be MRSA as we have a nasal swab positive for MRSA. Chest x-rays were carefully reviewed. The chest x-ray done today actually says clear lung martinez with some elevation of the right hemidiaphragm. The CT scan done yesterday of the chest shows pulmonary emboli, with some right lower lobe consolidation, which is fairly minimal, which the radiologist said could be pneumonia, aspiration, infarction or atelectasis. Also noted is cholelithiasis, breast implants and some old rib fractures. IMPRESSION: At this point, there is no evidence for ongoing bacterial pneumonia. The patient denies any fevers, chills, or productive sputum before she came here and was subsequently intubated. Her lungs are quite clear and she is oxygenating with very low FiO2 and PEEP. Her procalcitonin is negative x2 which is strong evidence against bacterial pneumonia, and her CBC and diff are entirely normal. Her chest CT shows a small infiltrate which I reviewed with Dr. Purcell of Pulmonary. While this could be an aspiration or bacterial pneumonia, her labs and clinical picture argue against this, and I wonder if this is atelectasis or even conceivably an infarct as we know she does have pulmonary emboli. RECOMMENDATIONS: 1. I would discontinue all systemic antibiotics, vancomycin, azithromycin and Zosyn at this time. 2. Will add nasal Bactroban. 3. If the patient is to be on high-dose steroids for more than a week or two, I would consider adding Bactrim as prophylaxis for Pneumocystis. 4. This case discussed extensively with the ICU team during rounds.
--- NOTE | 2016-09-06 14:12 | ABG ---
DateTimeAnalyzed 14:05:00 -_ pH ____7.479 - 7.350 7.450 pCO2 ___45.0__ -mmHg 35.0 45.0 pO2 ___84.7__ -mmHg 69.0 116 HCO3- ___33.1__ -mmol/L 22.0 26.0 ABE ____8.7__ -mmol/L -2.0 2.0 tHb ___11.9__ -g/dL O2Hb ___96.1__ -% COHb ____0.9__ -% MetHb ____0.9__ -% sO2 ___97.9__ -% FIO2 ___30.0__ -% CPAP ____5.0__ -cmH2O PEEP ____5.0__ -cmH2O Drawn By NB - Date/Time Notified____ 14:11:00 -_ Spontaneous_RR ___20.0__ -b/min Oxygen Device 1 VENTILATOR - Notified By NB - Notified Whom Cherelle, RN - B 764 -mmHg tO2 ___16.1__ -Vol% Lennox test N/A -
--- NOTE | 2016-09-06 15:47 | NUR ---
P: Respiratory Distress I: Pt extubated at 1450 and pt on 7L/OM with sats stable. Pt confused. Family at bedside when extubated. OGT dc'd and tube feeding stopped. NS TKO with K phos rider infusing. ST. Scd's on. Heparin gtt infusing and is therapeutic at 18units/kg/hr. Last PTT 66. Afebrile. States no pain. NPO until swallow evaluation. Saline lock patent. E: Stable S: Restraints removed after extubation. Frequent rounding. Pt's brother and sister updated on pt's condition and plan of care.
[2016-09-06 18:25] LABS: Phosphorus 4.9 mg/dL (2.5-4.9)
[2016-09-06] MEDS: Mupirocin 2% 22 Gm Ointment NASAL SCH (21:27)
[2016-09-07] VITALS (11 sets, daily range): BP systolic 123–166; BP diastolic 90–110; PULSE 82–122; RESP 18–30; O2SAT 95–100
[2016-09-07] MEDS: Chlorhexidine 0.12% 15 mL Oral Solution MT SCH ×3 (00:22→08:00)
[2016-09-07] MEDS: fentaNYL-PF 50 mCg/mL 2 mL Inj IVPUSH PRN ×2 (00:28→08:07)
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
--- NOTE | 2016-09-07 04:18 | NUR ---
bipap pt on 1L NC SpO2 high 90s pt not wanting to go on the bipap, pt wanting to lay flat to try and sleep after about 10 minutes pt calling and stating she is having a panic attack, pt SpO2 80s, pt having a hard time taking a breath, sat pt up, RT here and pt agreed to be placed on bipap. gave pt 25mcg of Fentanyl SpO2 high 90s on 50% bipap, pt keeping bipap on and at 45 degrees
[2016-09-07] MEDS: oxyCODONE-Acetamin 10-325 mg Tablet PO SCH (05:53)
[2016-09-07 06:10] LABS: BASOPHILS % (AUTO) 0.2 % (0-3); EOSINOPHILS % (AUTO) 0.4 % (0-5); MONOCYTES % (AUTO) 8.4 % (4-12); Mean Corpuscular Volume 93.5 fL (81-100); NEUTROPHILS % (AUTO) 67.6 % (40-74); Platelet Count 200 bil/L (150-400)
[2016-09-07 07:50] LABS: Magnesium 2.1 mg/dL (1.6-2.6); Phosphorus 3.6 mg/dL (2.5-4.9)
[2016-09-07] MEDS: Heparin 25K Unit/500mL 0.45 NS 25,000 UNIT in IV Premix 1 EACH IV SCH (08:12)
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
--- NOTE | 2016-09-07 10:42 | PROG NOTE ---
[address] [address] PROGRESS NOTE PATIENT: CAPO THOMPSON : 1950 MR#: [id number] ADMIT: 09/04/2016 JOB ID: [id number] DATE: 09/07/2016 PULMONARY PROGRESS NOTE: The patient is a 66-year-old woman with chronic demyelinating polyneuropathy, admitted with acute respiratory failure and pulmonary embolism. INTERVAL HISTORY: She was successfully extubated yesterday and has been on around 2 L nasal cannula since that time. She also wore BiPAP last night and is on it right now. She feels that the BiPAP is helping her. She does have some cough and denies any chest pain. REVIEW OF SYSTEMS: As above. Negative for fever, chills. PHYSICAL EXAMINATION: Vital signs reviewed. Temperature 37.1, pulse 92, respirations 24, BP 158/109, sats 99% on 2 L nasal cannula. General: Sitting up in bed, an extremely thin woman, breathing comfortably on BiPAP. Chest is clear to auscultation. LABORATORIES: Reviewed. ASSESSMENT AND RECOMMENDATIONS: 1. Acute on chronic hypercarbic hypoxic respiratory failure. 2. Neuromuscular disease -- chronic inflammatory demyelinating polyneuropathy. 3. Aspiration pneumonitis. 4. Right upper lobe segmental pulmonary embolism, on anticoagulation. This 66-year-old woman presented with shortness of breath. She had a pulmonary infiltrate on CT that appeared to be aspiration without evidence of pneumonia, so antibiotics were stopped because procalcitonin was negative x2. Also, she had a small right upper lobe segmental pulmonary embolism, for which she is on anticoagulation. I would probably recommend 3-6 months of anticoagulation for her. She is getting IVIG infusions -- this is day 3/ per Dr. Jimenez for her polyneuropathy. From a respiratory standpoint, her blood gas shows evidence of chronic hypercarbia. I suspect she is hypoventilating and retaining carbon dioxide because of neuromuscular disease-associated respiratory muscle weakness. I am prescribing a Trilogy ventilator for her to use at night and daytime p.r.n. This help prevent life-threatening exacerbations and hospitalizations. I do not think the patient's condition is explained by sleep apnea. BiPAP alone would be ineffective to treat her condition. She is on heparin drip. Gastrointestinal prophylaxis is not indicated. Pulmonary service will sign off at this point. Please contact us for any further questions or concerns.
--- NOTE | 2016-09-07 10:49 | PROG NOTE ---
[address] [address] PROGRESS NOTE PATIENT: CAPO THOMPSON : 1950 MR#: [id number] ADMIT: 09/04/2016 JOB ID: [id number] DATE: 09/06/2016 PULMONARY CRITICAL CARE PROGRESS NOTE: The patient was seen and evaluated with resident physician, Dr. Cipriano Marti DO (RES). Please refer to his separate detailed note for additional information. The following is an addendum. IDENTIFICATION: The patient is a 66-year-old woman with chronic demyelinating polyneuropathy admitted with respiratory failure. INTERVAL HISTORY: CT pulmonary angiogram done yesterday shows evidence of a segmental PE in the right upper lobe and she was started on anticoagulation with a heparin drip. The patient has been more paranoid, writing notes, etc., and on occasion getting agitated because of it. On her last attempt at spontaneous breathing trial, she made no respiratory efforts. REVIEW OF SYSTEMS: Unable to obtain. PHYSICAL EXAMINATION: Vital signs reviewed. Afebrile. Sats 100% on 30% FiO2, PEEP of 5, minute ventilation 3 L. General: Currently intubated and sedated, but when sedation is off she opens her eyes, tries to follow commands. Chest: Clear to auscultation. LABORATORIES: Reviewed. CBC and chemistry normal. Procalcitonin 0.05 yesterday and today's is pending. Cultures: No growth to date. MRSA nasal swab positive. Chest x-ray reviewed. Shows no obvious infiltrate. CT chest reviewed and shows filling defect in the right upper lobe segmental pulmonary artery. There is an area of consolidation in the dependent posterior part of the right lower lobe. ASSESSMENT: 1. Acute hypoxic respiratory failure. 2. Aspiration pneumonitis. 3. Right upper lobe segmental pulmonary embolism. 4. Chronic inflammatory demyelinating polyneuropathy. RECOMMENDATIONS: A 66-year-old woman with chronic demyelinating polyneuropathy treated with IVIG in the past presenting with altered mental status, hypoxia, and respiratory failure. She has evidence of a right upper lobe segmental pulmonary embolism as well as some consolidation in the right lower lobe on imaging. The procalcitonin, however, is negative, so she may just have aspiration pneumonitis rather than pneumonia. If her 2nd procalcitonin stays negative, I think it is okay to stop antibiotics. She is currently on heparin drip and will continue anticoagulation. She also has evidence of chronic hypercarbic respiratory failure based on her arterial blood gases. The patient requires noninvasive ventilator for nocturnal and p.r.n. daytime use to prevent life-threatening exacerbations and hospitalizations. The cause of her respiratory failure is neuromuscular disease related weakness. I do not think her condition is explained by sleep apnea and BiPAP is insufficient to treat it. I am going to prescribe a Trilogy for her to use at her group home facility. This morning we turned off her sedation and it took her some time to wake up and start breathing, but she is currently breathing on a pressure support trial of 5/5 with low minute ventilation of just under 3 L, which seems to be her baseline needs. She is on appropriate DVT and GI prophylaxis. She is a FULL CODE. She is on tube feeds. CRITICAL CARE TIME: 45 minutes.
[2016-09-07] MEDS: Mupirocin 2% 22 Gm Ointment NASAL SCH ×2 (10:51→20:30)
[2016-09-07] MEDS: Dexamethasone 4 mg/mL Inj IV SCH (10:51)
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
--- NOTE | 2016-09-07 11:37 | NUR ---
Evaluation completed. Please go to "Notes" then click on "Assessments and Notes" (bottom left corner of screen). Then select appropriate discipline tab on top of screen.
[2016-09-07] MEDS: PRIVIGEN IV SCH (12:08)
[2016-09-07] MEDS: MedroxyPROGESTERone 5 mg Tablet PO SCH (12:25)
--- NOTE | 2016-09-07 12:44 | NUR ---
CCU to [facility] Patient transferred to [facility] 2001 at approximately 1215. Report taken from Betty Starkey CCU RN. Patient VSS, resting at this time.
[2016-09-07] MEDS: oxyCODONE-Acetamin 10-325 mg Tablet PO PRN ×2 (14:01→19:39)
--- NOTE | 2016-09-07 15:38 | NUR ---
NUTRITION FOLLOW-UP Assess: 66 YO F admitted to CCU for hypoxia, weakness, altered mental status, and PNA requiring intubation. Pt extubated yesterday, ST recommending natural pureed textures and nectar thick liquids. TF only reached 10 ml/hr prior to extubation. Pt w/ AMS and paranoia. Requiring BiPAP at night. 8.4 kg wt loss over the last year (15% wt loss x1 yr = not significant). Pt is very thin. PMHX: Neuromuscular demyelinating polyneuropathy, multiple falls, dehydration, major depressive disorder, insomnia. DIET: NPO. LABS: K 3.3, CO2 30, Cr <0.30, Ca 8.3 MEDICATIONS: Decadron, Fentanyl GI: 2 BM 09/04. SKIN: Stage 1 PU on sacrum WEIGHT: 47.4 kg kg, BMI 17.9 kg/mg2 = underweight, Admit wt: 46.5 kg, IBW: 54.5 kg ESTIMATED NEEDS: Underweight/Wound Calories: 6026-4999 kcal/day (30-35 kcal/kg IBW) Protein: 55-80 g/day (1-1.5g/kg IBW) NUTRITION DIAGNOSIS: 1) Inadequate oral intake related to decreased ability to consume sufficient energy as evidenced by NPO/Vent status.---PERSISTS INTERVENTION: 1) Diet per ST recommendations. 2) Will add Gelatein to all trays 3) If pt unable to maintain PO intake, recommend restarting enteral nutrition d/t underweight BMI. Recommend Jevity 1.5 @ 10 ml/hr. Once pt tolerating, recommend advancing 10 ml q 6 hrs to goal rate of 55 ml/hr to provide 1815 kcal/d, 77 g/d protein, and 1160 ml/d H2O, meeting 100% of est needs. If no IVF, recommend flushing w/ 115 ml q 3 hrs to provide 1840 ml/d H2O, meeting 100% of fluid needs. MONITOR/EVALUATE: Diet adv/parker, Nutrition support, labs, wounds, wt, POC, GI/nutrition status. Follow per high nutrition risk guidelines.
--- NOTE | 2016-09-07 15:42 | NUR ---
Social Work Note: D&A: Reviewed chart. Pt. extubated on 09-06-16. Pt. transferred to # 2001. Per previous notes pt. is long-term resident at [facility]. Spoke with MD today and he is requesting CM team make sure that pt. can get "pradaxa" at [facility]. Copy of script made. Asked WELLNESS GUIDE/Kayli if she was aware of any concerns re: Pradaxa and she reports no. Will request that WELLNESS GUIDE check with [facility] once it has been confirmed by pt/family that she will be returning. P: CODING DIRECTOR to f/u with pt/family to confirm pt.'s return to [facility]. FRANKI Albrecht
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
--- NOTE | 2016-09-07 18:15 | DRSVH ---
PROCEDURE: CT ABDOMEN AND PELVIS WITH CONTRAST ([id number]) INDICATIONS: UNPROVOKED PE, AMS, r/o paraneoplastic syndrome TECHNIQUE: After the administration of oral and intravenous contrast, 5 mm thick sections acquired from the diap hragms to the symphysis. 5 mm thick coronal and sagittal reformats were performed. For radiation do se reduction, the following was used: automated exposure control, adjustment of mA and/or kV accordi ng to patient size. COMPARISON: None. FINDINGS: Image quality: Excellent. ABDOMEN: Lung bases: Consolidation noted in the lung bases bilaterally which could represent atelectasis, pne umonia or aspiration. Trace bilateral pleural fluid collections are noted. Heart size is normal. Bi lateral breast implants are noted. Solid organs: Liver and spleen are normal in size and enhancement. Gallbladder contains numerous ga llstones.. Biliary system is non-dilated. Pancreas enhances normally. No adrenal nodules. Kidneys are normal in size and enhancement, without hydronephrosis. Peritoneum and bowel: Circumferential wall thickening noted in the right colon may be due to nondist ention versus mucosal based mass. Focal wall thickening noted in the posterior margin of the proxima l stomach. Large amount of stool is noted in the rectum. No free fluid or air. Nodes and vessels: No retroperitoneal or mesenteric adenopathy. Aorta and inferior vena cava are no rmal in caliber. Miscellaneous: No ventral hernias. PELVIS: Genitourinary: Bladder contains a Monteiro catheter. Opinion the uterine endometrium is noted and uter ine carcinoma cannot be excluded. Miscellaneous: No inguinal hernias or adenopathy. Bones: No suspicious bony lesions. No vertebral body compression fractures. Spine degenerative disc disease and facet arthropathy are noted. 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 Bilateral SI joint osteoarthritis. Bilateral hip joint osteoarthritis. IMPRESSION: 1. Bibasilar lung consolidation compatible with atelectasis, pneumonia or aspiration. Please correl ate with clinical and laboratory data. 2. Trace bilateral pleural effusion. 3. Circumferential wall thickening involving the right colon which could be due to nondistention jason ezequiel mucosal based mass. Recommend colonoscopy for further evaluation. 4. Large amount of stool in the rectum. Please correlate with clinical findings to exclude obstipat ion. 5. Thickening of the endometrium of the uterus. Recommend pelvic ultrasound for definitive characte rization. 6. Focal wall thickening involving the posterior margin of the proximal stomach. Neoplastic process cannot be excluded recommend endoscopy for further evaluation. 7. Cholelithiasis. Dictated by: Eileen Starkey MD, PhD on 09/07/2016 at 18:07 Approved by: Eileen Starkey MD, PhD on 09/07/2016 at 18:13
--- NOTE | 2016-09-07 18:25 | NUR ---
TO CT Pt able to tolerate po contrast well, to CT at 1735 with IV pole (heparin gtt infusing and IMGB infusing). Pt alert, oriented and in no acute distress at time of transfer.
--- NOTE | 2016-09-07 18:26 | NUR ---
BACK from CT Pt comes back from CT at 1753. All lines infusing and pt in no distress, denies pain or other discomforts.
[2016-09-07] MEDS ORDERED: Vancomycin Serum Trough XX ONE (19:30)
[2016-09-08] VITALS (10 sets, daily range): BP systolic 123–150; BP diastolic 86–110; PULSE 86–120; RESP 6–29; O2SAT 95–100
[2016-09-08] MEDS: fentaNYL-PF 50 mCg/mL 2 mL Inj IVPUSH PRN ×4 (00:46→21:32)
--- NOTE | 2016-09-08 05:07 | NUR ---
Mentation/ Respiratory: Pt a/ox3 overnight- intermittently anxious. PRN Klonopin given in addition to melatonin. Pt still awake and restless. PRN Fentanyl given with good results- pt able to sleep. q2 turns. VSS. Tele Stach low 100s increasing to 120s when anxious. Pt tolerating BIPAP when sleeping. oral care PRN
[2016-09-08 06:17] LABS: BASOPHILS % (AUTO) 0.2 % (0-3); EOSINOPHILS % (AUTO) 1.7 % (0-5); MONOCYTES % (AUTO) 7.7 % (4-12); Mean Corpuscular Volume 93.1 fL (81-100); NEUTROPHILS % (AUTO) 63.6 % (40-74); Platelet Count 213 bil/L (150-400)
[2016-09-08] MEDS ORDERED: Potassium Chloride Inj 30 MEQ in Dextrose 5% 500 ML IV ONE (07:50)
--- NOTE | 2016-09-08 09:24 | NUR ---
NANETTE Signed verbal consent active precautions
[2016-09-08] MEDS ORDERED: Dabigatran 150 mg Capsule PO SCH (10:00)
[2016-09-08] MEDS: Polyethylene Glycol (PEG) 17 Gm Powder PO SCH (10:00)
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
--- NOTE | 2016-09-08 10:04 | NUR ---
Dialysis Patient off floor to Dialysis at approximately 0950 to [facility] asbestos removal supervisor.
--- NOTE | 2016-09-08 10:43 | NUR ---
Called and left message at [facility] admissions cell [phone] asking about new script Pradxa, needing to know if this is ok for patient to discharge on. Updated [employer]
[2016-09-08] MEDS: Dexamethasone 4 mg/mL Inj IV SCH (10:51)
[2016-09-08] MEDS ORDERED: Heparin 5,000 Unit/mL Inj IVPUSH PRN (11:05)
[2016-09-08] MEDS ORDERED: Heparin 25K Unit/500mL 0.45 NS 25,000 UNIT in IV Premix 1 EACH IV SCH (11:05)
[2016-09-08] MEDS: MedroxyPROGESTERone 5 mg Tablet PO SCH (11:13)
[2016-09-08] MEDS: Mupirocin 2% 22 Gm Ointment NASAL SCH ×2 (11:15→20:26)
[2016-09-08] MEDS ORDERED: 0.9% Sodium Chloride 250 ML ONE (11:18)
[2016-09-08] MEDS: PRIVIGEN IV SCH (11:25)
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
[2016-09-08] MEDS ORDERED: PEG/Electrolytes 4,000 mL Solution PO ONE (12:00)
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
--- NOTE | 2016-09-08 15:07 | PCM.CHPMED ---
Subjective Date of Service: Sep 08, 2016 Provider requesting consult: ZOHRA ZHAO DO Primary Physician: Admitting Physician: Emanuel Flores MD Primary Care Physician: Rebecca Attending Physician: Emanuel Flores MD Chief Complaint: Chief Complaint: Confusion, nausea, decreased appetite, CT findings. History of Present Illness: Gastroenterology Consult Note Patient is a 66-year-old female with a history of chronic neuromuscular demyelinating polyneuropathy treated in the past with IVIG, with most recent IVIG treatment on 08/31 who was hospitalized for increasing confusion while at [facility]. Her respiratory status rapidly declined during hospitalization and patient was subsequently intubated. She is currently being treated for acute respiratory failure, s/p intubation and extubation on 09/06/16 , severe malnutrition, and pulmonary embolism. She was worked up for an underlying cause behind the pulmonary embolism, and a CT of the abd/pelvis with contrast showed circumferential wall thickening involving the right colon, focal wall thickening involving the posterior margin of the proximal stomach, and thickening of the endometrium of the uterus, as well as cholelithiasis. She reports chronic nausea and decreased appetite, but denies vomiting or diarrhea, hematemesis or hematochezia. She denies fevers, chills, or night sweats. She reports "pain everywhere", but denies specific abdominal or chest pain. She reports occasional alcohol use, denies smoking, denies Tylenol use. She reports frequent NSAID use (ibuprofen). She does not remember ever having an EGD or colonoscopy. She reports her mother was diagnosed with colon cancer in her 50s. She denies family history of Crohn's, UC, or celiac disease. She states she has a history of a gastric ulcer in the past. Review of Systems: Comprehensive review of systems conducted and was negative except for the pertinent positives listed above. 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 History of major depressive disorder, nonpsychotic. Some elements of anxiety. Chronic osteoarthritis. History of osteoporosis History of gastric ulcer (some notes mention a history of GI bleed) Surgical History None Allergies: Coded Allergies: No Known Allergies (Unverified Allergy, Unknown, 09/04/16) Family History Family History Mother - Colon cancer in her 50s Father - Smoker, lung cancer Exam Vital Signs Vital Sign - Last Date Time Temp Pulse Resp B/P Pulse Ox O2 Delivery O2 Flow Rate FiO2 09/08/16 12:07 36.4 106 20 142/92 95 Room Air 09/08/16 05:44 45 09/07/16 19:29 2.00 Intake and Output 09/07/16 09/07/16 09/08/16 Cumulative From/Thru 15:00 23:00 07:00 09/04/16 12:37 - 09/08/16 05:19 Intake Total 200 ml 401 ml 8577 ml Output Total 2050 ml 300 ml 6425 ml Balance -1850 ml 101 ml 2152 ml Intake Oral 200 ml 100 ml 300 ml IV Total 301 ml 7790 ml Tube Feeding 287 ml Tube Irrigant 200 ml Output Urine Total 2050 ml 300 ml 6225 ml Gastric Drainage Total 200 ml # Voids 4 # Bowel Movements 0 2 Additional Information: General: Alert, Oriented. Appears cachectic and anxious, inappropriate mood, makes multiple paranoid statements. Head: Normocephalic, atraumatic. External ears normal. Eyes: PERRLA, EOMI. Anicteric sclerae. Mouth: Mouth Normal, Mucous Membranes Moist/[place] Neck: Neck supple with full range of motion. Chest & Lungs: Clear to auscultation bilaterally with no crackles, wheezes, or rhonchi. Cardiovascular: Regular Rate/Rhythm, Normal S1, Normal S2, No Murmurs/Rubs/ Gallops Abdomen: Non-tender, Non-distended, No masses, Normoactive bowel tones, Soft Extremities: No cyanosis/clubbing/edema bilaterally Neurological: Grossly Neurologically Intact, Normal Speech Lab and Diagnostics Result Diagram: 09/08/16 0559 09/08/16 0559 Assessment & Plan Assessment Patient is a 66 year old female with history of chronic neuromuscular demyelinating polyneuropathy who was hospitalized for acute on chronic respiratory failure with pulmonary embolism, who was shown to have suspicious thickening of her stomach and right colon, as well as endometrial thickening of the uterus on abdominal CT. Possible stomach, colon, and endometrial mass. - Thickening of the stomach and colon may be suspicious for Crohn's disease but given the presence of similar thickening in the endometrium and her family history of colon cancer, there is more suspicion for metastatic disease. She appears cachectic on exam but whether this is due to chronic malnutrition or cancer is uncertain. The fact that she is having pulmonary emboli raises further suspicion for malignancy. It appears a transvaginal ultrasound has been ordered to evaluate the uterine thickening, we will schedule her for upper and lower endoscopy to evaluate the stomach and right colon. - Clear liquid diet - NPO after midnight - GoLytely 2L at 6PM and 2L at 7AM tomorrow. - Will schedule upper and lower endoscopy for tomorrow. Problems: GI Prophylaxis: H2 coral VTE Prophylaxis: Sub-Q Heparin (Unfractionated), SCDs VTE Mechanical Devices: Intermittant Pneumatic CD Resuscitation Status: CPR: Attempt Resuscitation Attending Statement pt seen and examined agree with resident physician note consulted to evaluate CT findings of colon thickening and gastric thickening. Pt has family history of colon cancer. plan as outlined in resident physician note above. Daniel Ahumada Sep 08, 2016 15:07 Raul Rodriguez MD Sep 11, 2016 15:16
--- NOTE | 2016-09-08 18:35 | NUR ---
Heparin/Anxiety Patient refused to start Heparin after it was DC'd. Patient stated she was not supposed to be on it due to bleeding. Patient yelling at this RN while special procedures tech present. Patient yelling she needed her anxiety medicine and pain medicine. This RN notified MD and charge out clerk of situation. MD to visit patient to discuss Heparin. This RN administered anxiety and pain medication. After MD visit with patient MD stated pt is ready for Heparin. Pt upset about Heparin, verbalizing she doesn't care anymore, stating she wants to leave. This RN sat with pt and listened. Started Heparin at 1840.
[2016-09-08] MEDS: oxyCODONE-Acetamin 10-325 mg Tablet PO PRN (20:23)
[2016-09-09] VITALS (12 sets, daily range): BP systolic 120–148; BP diastolic 83–101; PULSE 90–108; RESP 12–24; O2SAT 95–100
[2016-09-09] MEDS: oxyCODONE-Acetamin 10-325 mg Tablet PO PRN ×2 (00:38→09:34)
[2016-09-09] MEDS: fentaNYL-PF 50 mCg/mL 2 mL Inj IVPUSH PRN (01:58)
--- NOTE | 2016-09-09 05:50 | NUR ---
Golyte Prep 2L given yesterday evening by day shift. Pt having liquid brown stools overnight. 0500 2nd half of the prep started. Pt doing well until she became nauseous and started dry heaving PRN IV Zofran given. Pt encouraged to take a break until nausea resolves. PT has one 400cc glass of bowel prep remaining. Heparin gtt continues per protocol.
[2016-09-09 08:42] LABS: Mean Corpuscular Hemoglobin 30.2 pg (27.0-35.0)
[2016-09-09] MEDS: MedroxyPROGESTERone 5 mg Tablet PO SCH (10:00)
[2016-09-09] MEDS: Polyethylene Glycol (PEG) 17 Gm Powder PO SCH (10:00)
[2016-09-09] MEDS: Mupirocin 2% 22 Gm Ointment NASAL SCH ×2 (10:05→21:41)
--- NOTE | 2016-09-09 10:23 | DRSVH ---
PROCEDURE: US PELVIC SONOGRAM + TRANSVAGINAL SONOGRAM INDICATIONS: Transvaginal endometrial thickening TECHNIQUE: Real-time scanning was performed of the pelvic organs, with image documentation. Additional endovagi nal scanning was necessary due to incomplete visualization of the adnexal and endometrial structures by transabdominal scanning. COMPARISON: [facility], CT, CT ABD PELVIS W CON, 09/07/2016, 17:26. FINDINGS: (orthogonal measurements) Transabdominal scanning: No pathologic free abdominal or pelvic fluid. Endovaginal scanning: Uterus: Uterus is anteverted measuring 8.5 x 6.5 x 4.8 cm. Endometrium is incompletely visualized du e to overlying bowel gas an empty bladder. Endometrium measures 6 mm. Ovaries: Ovaries are obscured due to overlying bowel gas. Note is made of a Monteiro catheter within th e bladder. IMPRESSION: 1. Endometrium measures 6 mm which is thickened for a postmenopausal woman. Recommend gynecological followup. 2. Limited examination due to emptied urinary bladder and overlying bowel gas. 3. Ovaries not visualized. Dictated by: Wm Todd M.D. on 09/09/2016 at 10:16 Approved by: Wm Todd M.D. on 09/09/2016 at 10:21
[2016-09-09] MEDS ORDERED: Potassium Phos (mEq) Inj 20 MEQ in Dextrose 5% 250 ML IV ONE (13:15)
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
--- NOTE | 2016-09-09 14:31 | NUR ---
NUTRITION FOLLOW-UP Assess: 66 YO F admitted to CCU for hypoxia, weakness, altered mental status, and PNA requiring intubation. Pt extubated 09/06. Suspicion for metastatic colon cancer. Upper and lower endoscopy scheduled. Pt on BiPAP overnight. Pt has poor PO intake, however pt likely not be a candidate for enteral nutrition d/t overnight BiPAP requirements, and anxiety. Pt states that she has lost weight recently but unclear about timeframe. PMHX: Neuromuscular demyelinating polyneuropathy, multiple falls, dehydration, major depressive disorder, insomnia. DIET: Clear liquid, PO bites-10% LABS: K 2.9, Cl 96, CO2 35, Cr <0.30, Ca 8.4 MEDICATIONS: MVI, D3, Zofran GI: 3 BM 2/2. SKIN: Stage 1 PU on sacrum WEIGHT: 44.2 kg kg, BMI 16.7 kg/mg2 = underweight, Admit wt: 46.5 kg, IBW: 54.5 kg ESTIMATED NEEDS: Underweight/Wound Calories: 8885-9064 kcal/day (30-35 kcal/kg IBW) Protein: 55-80 g/day (1-1.5g/kg IBW) NUTRITION DIAGNOSIS: 1) Inadequate oral intake related to decreased ability to consume sufficient energy as evidenced by NPO/Vent status.---PERSISTS INTERVENTION: 1) Diet per ST recommendations. 2) Continue Gelatein to all trays 3) Will add cottage cheese to all trays MONITOR/EVALUATE: PO intake, labs, wounds, wt, POC, GI/nutrition status. Follow per high nutrition risk guidelines.
[2016-09-09] MEDS ORDERED: KCl 40 mEq/D5W 500 mL 40 MEQ in IV Premix 500 EACH IV ONE (15:20)
[2016-09-09] MEDS ORDERED: PEG/Electrolytes 4,000 mL Solution PO ONE (16:35)
--- NOTE | 2016-09-09 17:24 | PCM.PNMED ---
Subjective Date of Service Sep 09, 2016 Subjective Pt finished part of her bowel prep overnight but was unable to complete it. She appeared very anxious this morning and stated she was having a panic attack. She reports diarrhea, but denies fever, chills, chest pain, nausea, vomiting. Exam Vital Signs Vital Sign - Last Date Time Temp Pulse Resp B/P Pulse Ox O2 Delivery O2 Flow Rate FiO2 09/09/16 12:24 36.2 108 20 139/91 98 Nasal Cannula 2.00 30 Intake and Output 09/08/16 09/08/16 09/09/16 Cumulative From/Thru 15:00 23:00 07:00 09/04/16 12:37 - 09/09/16 05:25 Intake Total 76 ml 2120 ml 1969 ml 70271 ml Output Total 850 ml 7275 ml Balance 76 ml 1270 ml 1969 ml 5467 ml Intake Oral 2120 ml 1800 ml 4220 ml IV Total 76 ml 169 ml 8035 ml Tube Feeding 287 ml Tube Irrigant 200 ml Output Urine Total 850 ml 7075 ml Gastric Drainage Total 200 ml # Voids 4 8 # Bowel Movements 3 5 Exam General: Alert, Oriented. Appears cachectic and anxious, inappropriate mood, makes multiple paranoid statements. Head: Normocephalic, atraumatic. External ears normal. Eyes: PERRLA, EOMI. Anicteric sclerae. Mouth: Mouth Normal, Mucous Membranes Moist/Confluence Neck: Neck supple with full range of motion. Chest & Lungs: Clear to auscultation bilaterally with no crackles, wheezes, or rhonchi. Cardiovascular: Regular Rate/Rhythm, Normal S1, Normal S2, No Murmurs/Rubs/ Gallops Abdomen: Non-tender, Non-distended, No masses, Normoactive bowel tones, Soft Extremities: No cyanosis/clubbing/edema bilaterally Neurological: Grossly Neurologically Intact, Normal Speech Lab and Diagnostics Result Diagram: 09/09/1615 09/09/1615 Microbiology MRSA positive (screen and sputum) X-Rays, CTs and MRIs X-RAY CHEST ONE VIEW, PORTABLE IMPRESSION: 1. Medial left basilar atelectasis versus aspiration or pneumonia. Correlate clinically. Dictated by: Deandre BELLA Interpreted: Eileen Starkey MD on 09/05/2016 at 8 :41 Transcribed by: MARIA FERNANDA on 09/05/2016 at 8:43 Approved by: Eileen Starkey MD, PhD on 09/05/2016 at 17:04 CT BRAIN WITHOUT CONTRAST IMPRESSION: No acute process. Dictated by: James Ibarra M.D. on 09/04/2016 at 14:03 Approved by: James Ibarra M.D. on 09/04/2016 at 14:04 X-RAY CHEST ONE VIEW, PORTABLE IMPRESSION: Right medial lung base pneumonia. Follow up plain films of the chest are recommended to ensure resolution, and to exclude underlying or central malignancy. Dictated by: James Ibarra M.D. on 09/04/2016 at 13:27 Approved by: James Ibarra M.D. on 09/04/2016 at 13:28 CT CHEST IMPRESSION: 1. Exam is positive for pulmonary embolic disease, showing low clot volume at a branch in the right upper lobe vessel. No additional emboli seen. 2. Posterior right lower lobe consolidation suspect for pneumonia, aspiration or infarction. Small consolidation in the left lower lobe could be atelectatic, scar tissue or inflammatory process. 3. Endotracheal and nasogastric tubes appear in position 4. Cholelithiasis. 5. Bilateral augmentation implants. 6. Old fractures left eighth and ninth posterior ribs. Findings are concordant with the preliminary report Dictated by: Raymond Almaraz M.D. on 09/06/2016 at 8:27 Approved by: Raymond Almaraz M.D. on 09/06/2016 at 8:49 CT ABDOMEN IMPRESSION: 1. Bibasilar lung consolidation compatible with atelectasis, pneumonia or aspiration. Please correlate with clinical and laboratory data. 2. Trace bilateral pleural effusion. 3. Circumferential wall thickening involving the right colon which could be due to nondistention versus mucosal based mass. Recommend colonoscopy for further evaluation. 4. Large amount of stool in the rectum. Please correlate with clinical findings to exclude obstipation. 5. Thickening of the endometrium of the uterus. Recommend pelvic ultrasound for definitive characterization. 6. Focal wall thickening involving the posterior margin of the proximal stomach. Neoplastic process cannot be excluded recommend endoscopy for further evaluation. 7. Cholelithiasis. Dictated by: Eileen Starkey MD, PhD on 09/07/2016 at 18:07 Approved by: Eileen Starkey MD, PhD on 09/07/2016 at 18:13 Additional Diagnostics DateTimeAnalyzed 14:05:00 -_ pH ____7.479 - 7.350 7.450 pCO2 ___45.0__ -mmHg 35.0 45.0 pO2 ___84.7__ -mmHg 69.0 116 HCO3- ___33.1__ -mmol/L 22.0 26.0 ABE ____8.7__ -mmol/L -2.0 2.0 Assessment & Plan Patient is a 66 year old female with history of chronic neuromuscular demyelinating polyneuropathy who was hospitalized for acute on chronic respiratory failure with pulmonary embolism, who was shown to have suspicious thickening of her stomach and right colon, as well as endometrial thickening of the uterus on abdominal CT. Possible stomach, colon, and endometrial mass. - Thickening of the stomach and colon may be suspicious for Crohn's disease but given the presence of similar thickening in the endometrium and her family history of colon cancer, there is more suspicion for metastatic disease. She appears cachectic on exam but whether this is due to chronic malnutrition or cancer is uncertain. The fact that she is having pulmonary emboli raises further suspicion for malignancy. It appears a transvaginal ultrasound has been ordered to evaluate the uterine thickening, we will schedule her for upper and lower endoscopy to evaluate the stomach and right colon. - She was unable to finish her prep; will repeat Golytely and proceed with endoscopy tomorrow. - Hold heparin at 5 AM tomorrow in anticipation for endoscopy. - Clear liquid diet - NPO after 9 AM GI Prophylaxis: H2 coral VTE Prophylaxis: Sub-Q Heparin (Unfractionated), SCDs VTE Mechanical Devices: Intermittant Pneumatic CD Resuscitation Status: CPR: Attempt Resuscitation Attending Statement pt seen and examined agree with resident note and plan plan for endoscopy tomorrow after more colon prep. Daniel Ahumada Sep 09, 2016 17:24 Raul Rodriguez MD Sep 11, 2016 15:44
[2016-09-09] MEDS ORDERED: Haloperidol 5 mg/mL Inj IVPUSH PRN (17:30)
--- NOTE | 2016-09-09 18:00 | NUR ---
Npo/Anxiety/Endo Patient a/o x3, npo since 0600 for colonoscopy. Patient becomes anxious and upset at times regarding poc and diet. Patient states "I need water I cant talk." "Im having a panic attack." Antianxiety given and bipap applied per patient request. Patient incont of urine and liq brown watery stool freq. GI MD in this evening to speak to patient regarding endo procedure and to repeat colon prep. Clear liq diet restarted. Will cont poc.
--- NOTE | 2016-09-09 18:40 | NUR ---
Refused Golytely Prep Patient became very anxious and tearful when this RN discussed the order to start Golytely prep, patient states "Im not going to drink that again." "I cant do it. I did not understand what the doctor meant when he said prep." This RN spoke with Hosp MD who states he will speak with pt. Patient cont to refuse prep tonight, states "I will do upper endoscopy but dont want to do colonoscopy. Bipap applied per patient request for panic attack. Patient resting comfortably at this time.
[2016-09-10] VITALS (14 sets, daily range): BP systolic 120–151; BP diastolic 79–98; PULSE 86–110; RESP 12–43; O2SAT 86–98
[2016-09-10 02:46] LABS: Mean Corpuscular Hemoglobin 30.4 pg (27.0-35.0); Mean Corpuscular Volume 91.8 fL (81-100)
[2016-09-10] MEDS ORDERED: KCl 40 mEq/D5W 500 mL 40 MEQ in IV Premix 1 EACH IV ONE (05:10)
[2016-09-10] MEDS: fentaNYL-PF 50 mCg/mL 2 mL Inj IVPUSH PRN ×2 (06:35→15:30)
--- NOTE | 2016-09-10 07:13 | NUR ---
Patient refused bowel prep. Patient continued to refuse her bowel prep and stated "I don't want to keep taking that stuff."
[2016-09-10] MEDS: Polyethylene Glycol (PEG) 17 Gm Powder PO SCH (08:30)
[2016-09-10] MEDS: oxyCODONE-Acetamin 10-325 mg Tablet PO PRN (08:56)
[2016-09-10] MEDS: Mupirocin 2% 22 Gm Ointment NASAL SCH ×2 (08:57→20:19)
[2016-09-10] MEDS: MedroxyPROGESTERone 5 mg Tablet PO SCH (08:57)
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
[2016-09-10] MEDS ORDERED: Lactated Ringer's 1,000 ML IV ONE (11:35)
--- NOTE | 2016-09-10 11:40 | NUR ---
Social Work note - Readiness for discharge. INDUSTRIAL DESIGN INTERN met with pt - pt is alert, oriented and tearful. She states that she is tired. She plans to go to SNF - willing to return to [facility]. identifies that she will likely be medically stable tomorrow to go - working on Trilogy settings. Pt states that she does not want INDUSTRIAL DESIGN INTERN to talk with family today - she said that she wants to make decisions. She denies any other needs. Plan: to [facility] ([facility]) NICOL Dumont
--- NOTE | 2016-09-10 11:40 | NUR ---
LOSS PREVENTION OPERATIONS MANAGER received verbal consent for NANETTE's - pt states she is too weak to sign. HANNAH FinneySW
--- NOTE | 2016-09-10 12:00 | NUR ---
Home Trilogy set-up I spoke with Tammy Walker ([phone]) from [facility] regarding this patients home Trilogy. She said that they need to get approval from the facility before they can set it up. She went on to say that this usually only happens Mon-Fri as the administrative folks don't work on the weekend. Once [facility] gets approval, the machine will be delivered and set-up with their Resp Therapist. SW updated.
[2016-09-10] MEDS: Lactated Ringer's 1,000 ML IV SCH ×3 (13:02→14:51)
--- NOTE | 2016-09-10 13:02 | PCM.HPANE ---
Patient Data Date of Service: Sep 10, 2016 Surgeon Admitting Provider:Emanuel Flores MD Attending Provider:Emanuel Flores MD Primary Care Physician:Nopcp Other Provider: Reason for Visit Hypoxia,Weakness Ht/WT & BMI Height (Feet): 5 Height (Inches): 4.00 Weight (Kilograms): 44.800 Body Mass Index 17.50 Allergies Coded Allergies: No Known Allergies (Unverified Allergy, Unknown, 09/04/16) Past Anesthesia History Anesthesia History: Denies:: Anesthesia Reactions Diabetes History Hx Diabetes?: No MRSA MRSA: No Medications Hypertension Medication: No Home Meds Incl Beta Ivonne: No Active Scripts [diphenHYDramine] (Benadryl)50 MG CAPSULE No Conflict Check50 Mg PO HS PRN Insomnia #20 Prov:Wiliam Charles MD 03/16/16 Reported Medications Acetaminophen 325 Mg [id number] Mg PO 09/04/16 Tamsulosin (Flomax)0.4 Mg Capsule0.4 Mg PO DAILY Ref 0 09/04/16 Oxycodone HCl/Acetaminophen (Endocet 10-325 mg Tablet)1 Each Tablet1 Each PO QID PAIN 08/31/16 Estrogens Conj/Medroxyprog 0.625-2.5 mg (Prempro 0.625-2.5 mg)1 Each Tablet1 Tablet PO DAILY #1 PACK 08/31/16 Multivitamin with Minerals (Myvitalife)1 Each Capsule1 Each PO DAILY 06/18/16 Ibuprofen 800 Mg [id number] Mg PO BID 03/11/16 Melatonin 5 Mg [id number] Mg PO HS 05/29/15 Trazodone 50 Mg Vnvbfc25 Mg PO HS 05/26/15 Zolpidem 10 Mg Tablet5-10 Mg PO HS 05/26/15 Clonazepam 1 Mg Tablet0.5-1 Mg PO BID PRN For Anxiety Ref 0 05/26/15 Venlafaxine 75 Mg [id number] Mg PO BID 05/26/15 Omeprazole 40 Mg Capsule.dr40 Mg PO BID PRN For Dyspepsia or Heartburn Ref 0 05/26/15 Cholecalciferol (Vitamin D3) (Vitamin D)1,000 Unit Capsule1,000 Unit PO DAILY 05/26/15 History History of ENT Problems?: No HEENT History: Denies:: Cataracts Dysphagia Sinus Problem Hx of Heart Problems?: No Cardiovascular History: Denies:: Cardiac Surgery Chest Pain Congestive Heart Failure Edema Heart Murmur Hypertension Irregular Heartbeat Pacemaker Thrombophlebitis Hx of Respiratory Problem?: Yes Respiratory History: Positive for:: Pulmonary Embolism (extubated 09/06/2016 - on heparin gtt) Denies:: Asthma COPD Chest Surgery Dyspnea Emphysema Hemoptysis Pneumonia Tuberculosis Hx Neurologic Problems?: Yes (Distal acquired demyelinating symmetric neuropathy (DADS)) Neurological History: Positive for:: Headaches Denies:: Alzheimer's Disease CVA Dementia Dizziness Parkinson's Disease Seizures Hx of GI Problems?: No Gastrointestinal History: Positive for:: Gastrointestinal Bleeding Denies:: Diverticulitis Gastroesphageal Reflux Heartburn Hepatitis Hiatal Hernia Rectal Bleeding Hx of Problems?: Yes Genitourinary History: Positive for:: Urinary Tract Infection Denies:: HX of Hemodialysis Kidney Stones HX of Peritoneal Dialysis: No Female Hx: Denies:: Currently Endometriosis Pelvic Inflammatory Problems with Breasts? Hx Musculoskeletal Problems?: Yes Hx of Psycho/Social Problems?: Yes Psycho Social History: Positive for:: Anxiety Hx Depression Denies:: Bipolar Disorder Suicide Attempt Hx Surgeries?: No Hx Any Other Health Problems?: Yes Other History: Positive for:: Hospitalization ([facility]) Denies:: Cancer Thyroid Disease History Blood Transfusions: Positive for:: Blood Transfusions Denies:: Blood Transfuse Reaction Hx Diabetes: No Hx Substance Use: NoHave You Smoked inLast 12 mo: No Stop/Bang S-Snoring: Do You Snore Loudly: No T-Tired: feel tired, fatigued: Yes O-Obsered: Observed not breath: No P-Blood Pressure: treated: Yes B- Body Mass Index > 35 kg/m2: No A- Age over 50: Yes N- Neck Large Circumference: No G- Gender Male: No JULIUS Total Score: 2 JULIUS Risk Assessment: Low Risk, <3 Yes Risk Assessment Category Category 1A: Patient has history of documented sleep apnea, and HAS NOT received any narcotic, sedative or anesthesia administration during this stay. Category 1B: Patient has history of documented sleep apnea, and HAS received any narcotic , sedative or anesthesia administration during this stay Category 2: Patient has SUSPECTED Obstructive Sleep Apnea, and HAS received any narcotic , sedative or anesthesia administration during this stay. Category 3: Patient has SUSPECTED Obstructive Sleep Apnea and HAS NOT received narcotic, sedative or anesthesia administration during this stay. Category 4: Outpatient in Procedural Areas with known sleep apnea or who screen positive for High Risk via the STOP/BANG questionnaire. Exam Exam Vital Signs Vital Signs Date Time Temp Pulse Resp B/P Pulse Ox O2 Delivery O2 Flow Rate FiO2 09/10/16 12:14 36.3 95 24 138/98 98 Nasal Cannula 3.00 09/10/16 10:06 94 09/10/16 08:55 102 09/10/16 08:55 CPAP/BIPAP 09/10/16 08:50 36.3 102 28 146/83 98 BiPAP 09/10/16 05:42 88 09/10/16 05:20 102 33 94 30 General Appearance: Alert, Oriented X3, Mild Distress HEENT/AIRWAY: MP 2, Neck Movement (Full) Lungs: Other (Nasal canula, weak respiratory effort. BiPap at night) Heart: Regular Rate/Rhythm Meds/Labs/Diagnostics Admission Meds Current Medications Potassium Phosphate 20 meq/ Dextrose/Water 254.5455 ml @ 63.636 m... ONCE ONCE IV Last administered on 09/09/16 16:06; Start 09/09/16 at 13:15; Stop at 17:14; Status DC Potassium Chloride In D5W 40 meq/Premix 500 ml @ 125 mls/hr ONCE ONCE IV Last administered on 09/09/16 20:11; Start 09/09/16 at 15:20; Stop 09/09/16 at 19: 19; Status DC Potassium Chloride In D5W/ Premix (Potassium Chloride 40 mEq/ D5W 500 mL/IV Premix) 500 ml @ 125 mls/hr Q4H ONCE IV Last administered on 09/10/16 05:31; Start 09/10/16 at 05:10; Stop 09/10/16 at 09:39; Status DC Labs Test 09/04/16 12:45 09/04/16 13:00 09/04/16 15:22 09/05/16 02:48 Urine Legionella pneumophilia Ag Negative (Negative) Urine Color Straw (YELLOW) Urine Appearance Hazy (CLEAR,HAZY) Urine pH 7.0 (5.0-8.0) Urine Specific [place] 1.020 (1.003-1.035) Urine Protein Negativemg/dL (NEG,TRACE) Urine Glucose (UA) Negativemg/dL (NEGATIVE) Urine Ketones 80mg/dL (NEGATIVE) Urine Occult Blood Moderate (NEGATIVE) Urine Nitrite Positive (NEGATIVE) Urine Bilirubin Negative (NEGATIVE) Urine Urobilinogen Normalmg/dL (NORMAL) Urine Leukocyte Esterase Small (NEGATIVE) Urine RBC 3-10/hpf (0-2) Urine WBC 6-10/hpf (0-5) Urine Epithelial Cells Few/hpf (NONE-MOD) Urine Crystals Amorphous urates (NONE Urine Bacteria Many/hpf (NONE-FEW) Urine Hyaline Casts None/lpf (NONE) Urine Granular Casts Occasional (NONE SEEN) Urine Waxy Casts None seen (NONE SEEN) Urine Red Blood Cell Casts None seen (NONE SEEN) Urine White Blood Cell Casts None seen (NONE SEEN) Urine Mucus None seen (None Seen) Urine Trichomonas None seen (NONE SEEN) Urine Yeast None (NONE SEEN) Urinalysis Comment None Urine Culture Reflexed Indicated Ammonia 78ug/dL (18-53) Hold Rivera Top Tube Received (Received) Alcohol, Quantitative < 10mg/dL (0-10) Total Bilirubin 0.4mg/dL (0.0-1.2) Aspartate Amino Transf (AST/SGOT) 27U/L (0-50) Alanine Aminotransferase (ALT/SGPT) 19U/L (0-32) Alkaline Phosphatase 62U/L (25-165) Total Protein 6.2g/dL (6.4-8.4) Albumin 3.1g/dL (3.4-5.0) Test 09/05/16 04:05 09/06/16 05:30 09/07/16 05:50 09/08/16 05:50 Lactic Acid Level 1.8mmol/L (0.4-2.0) Procalcitonin 0.06ng/mL (See Comment) Magnesium Level 2.1mg/dL (1.6-2.6) Triglycerides Level 102mg/dL (0-149) Phosphorus Level 3.5mg/dL (2.5-4.9) Test 09/08/16 05:59 09/09/16 23:05 09/10/16 02:25 Neutrophils (%) (Auto) 63.6% (40-74) Lymphocytes (%) (Auto) 26.4% (14-46) Monocytes (%) (Auto) 7.7% (4-12) Eosinophils (%) (Auto) 1.7% (0-5) Basophils (%) (Auto) 0.2% (0-3) Activated Partial Thromboplast Time 60.9sec (22.8-33.0) White Blood Count 5.6th/mm3 (3.8-10.1) Red Blood Count 3.92mil/mm3 (3.90-5.20) Hemoglobin 11.9g/dL (12.0-15.6) Hematocrit 36.0% (35.0-46.0) Mean Corpuscular Volume 91.8fL (81-100) Mean Corpuscular Hemoglobin 30.4pg (27.0-35.0) Mean Corpuscular Hemoglobin Concent 33.1% (32.0-37.0) Red Cell Distribution Width 13.4% (12.3-15.4) Platelet Count 250bil/L (150-400) Sodium Level 139mEq/L (134-144) Potassium Level 3.6mEq/L (3.5-5.2) Chloride Level 97mEq/L (97-108) Carbon Dioxide Level 33mmol/L (18-29) Blood Urea Nitrogen 9mg/dL (8-27) Creatinine < 0.30mg/dL (0.57-1.00) Estimat Glomerular Filtration Rate 317mL/min (>59) Glucose Level 87mg/dL (60-99) Calcium Level 8.8mg/dL (8.5-10.1) Plan Impression Patient chart reviewed, patient interviewed and anesthestic plan with risks, benefits, and alternatives discussed, and informed consent obtained. NPO Status: > 8 hours ASA Physical Status: ASA4 Life Threatening Anesthetic Plan: MAC Bene/Risks/Altern/Consents: Yes HP Complete Prior to Induction: Yes Other Long discussion with patient, very poor respiratory status secondary to PE and neuromuscular disease. Recently extubated. High risk for needing intubation to have this procedure done but will attempt to proceed without intubation. Patient agreeable. Alert and oriented this morning, fully able to consent for herself. Requests that I do not speak to her family regarding decision making at this time. Louie Jeffers MD Sep 10, 2016 12:59
[2016-09-10] MEDS ORDERED: Ondansetron 2 mg/mL 2 mL Inj IVPUSH PRN (13:05)
[2016-09-10] MEDS ORDERED: Lidocaine PF 1% 30 mL Inj ONE (14:55)
[2016-09-10] MEDS ORDERED: Propofol 10,000 mCg/mL 20 mL Inj ONE (14:55)
--- NOTE | 2016-09-10 15:17 | PCM.ANEP1 ---
Post Anesthesia Phase 1 PACU Phase 1 Assessment Date of Service: Sep 10, 2016 Vital Signs Phase II - BP 117/62, HR 110, RR 28, O2 93% on NRB Vital Signs Date Time Temp Pulse Resp B/P Pulse Ox O2 Delivery O2 Flow Rate FiO2 09/10/16 12:14 36.3 95 24 138/98 98 Nasal Cannula 3.00 09/10/16 10:06 94 09/10/16 08:55 102 09/10/16 08:55 CPAP/BIPAP 09/10/16 08:50 36.3 102 28 146/83 98 BiPAP COSTA's with Equal Strength: No Pain: No Nausea or Vomiting: No Oxygen Delivery: Non-Rebreather Mask Lungs: Other (Nasal canula, weak respiratory effort. BiPap at night) Louie Jeffers MD Sep 10, 2016 15:17
--- NOTE | 2016-09-10 15:19 | PCM.ANEP2 ---
Post Anesthesia Evaluation ASA/CMS Post Anesthesia Date of Service: Sep 10, 2016 VS in Patient's Normal Range?: Yes Resp Stable; Airway Patent?: No (Back to BiPap) CV Function & Hydration Stable: Yes Mental Status Recovered?: Yes Pain control Satisfactory?: Yes N/V Control Satisfactory?: Yes Louie Jeffers MD Sep 10, 2016 15:19
[2016-09-10] MEDS ORDERED: Heparin 25K Unit/500mL 0.45 NS 25,000 UNIT in IV Premix 1 EACH IV SCH (15:30)
[2016-09-10] MEDS ORDERED: Heparin 5,000 Unit/mL Inj IVPUSH PRN (15:30)
--- NOTE | 2016-09-10 18:14 | NUR ---
Anxiety/Endo Patient a/o x 3, c/o gen pain, meds x 2 given with good effect. Patient npo after 0900 and down to Endo at 1400. Patient returned to room at approx 1520, awake a/o x 3, very anxious stating "I cant breathe Im drowning." O2 @ 3 L sat 84%. RTC at bedside and bipap applied and Fentanyl given O 2 sat 88-90%. Patient calmer this evening. MD updated on patient, no new orders.
[2016-09-10] MEDS: Dabigatran 150 mg Capsule PO SCH (21:13)
[2016-09-11] VITALS (7 sets, daily range): BP systolic 123–129; BP diastolic 85–94; PULSE 93–109; RESP 14–39; O2SAT 94–97
[2016-09-11 03:00] LABS: Mean Corpuscular Volume 92.4 fL (81-100)
--- NOTE | 2016-09-11 06:41 | NUR ---
Bipap, anxiety and skin. Patient had a mostly restful night that was interrupted by short bursts of moderate anxiety. Patient was transitioned between bipap and 3lpm of supplemental O2 via an oxymask. Patient requested to take intermittent breaks from her bipap and then would become anxious shortly after being on the oxymask. Patient was turned intermittently and Mepilex was placed on the patients sacral area for skin protection. Abrasions to the patient coccus and right butt cheek appear to be slightly improved over yesterday.
[2016-09-11] MEDS: Polyethylene Glycol (PEG) 17 Gm Powder PO SCH (08:30)
[2016-09-11] MEDS: Dabigatran 150 mg Capsule PO SCH (08:42)
[2016-09-11] MEDS: oxyCODONE-Acetamin 10-325 mg Tablet PO PRN (08:43)
[2016-09-11] MEDS: MedroxyPROGESTERone 5 mg Tablet PO SCH (08:43)
[2016-09-11] MEDS: Mupirocin 2% 22 Gm Ointment NASAL SCH (08:46)
--- NOTE | 2016-09-11 09:13 | PCM.DIMED ---
Discharge Instructions Date of Service Sep 11, 2016 Dates of Hospitalization Sep 04, 2016 at 15:12 Discharge Diagnosis Discharge Diagnosis #. Pulmonary embolism,acute, Active - CTA chest PE on a branch in the right upper lobe vessel, likely and unprovoked embolism - CT abdomen and pelvis ordered to r/o occult malignancy, showed thickening of colon, stomach and uterine lining. Radiology recommends upper and lower endoscopy, and transvaginal ultrasound.consulted GI - Transvaginal Ultrasound ordered, limited exam due to fullness of bladder and active diarrhea during exam, thickened for a postmenopausal woman Recommend outpatient SOFA BACK UPHOLSTERER followup - Treated with heparin drip. started Pradaxa . 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 - Dr. Moore follows in outpatient. - Completed 5 day course of IVIG . Please follow-up with Dr. Moore #.Altered mental status, present on admission, improved #. Acute on Chronic hypoxic and hypercapnic respiratory failure, present on admission, active - please continue using trilogy #. Severe protein/caloric malnutrition, present on admission, active. # Major depression with anxiety present on admission, active. -Please continue Home regimen of venlafaxine and clonazepam Diet Low fat, Low Sodium Activity Limited until seen by PCP, Other (continue physical therapy at [facility] facility) Call your provider Fever or Chills, Shortness of breath, Bleeding, Chest pain, Vomitting, Excessive diarrhea, Weakness (unilateral) Patient Instructions You were hospitalized due to acute hypoxic and hypercapnic respiratory failure due to Distal acquired demyelinating symmetric neuropathy (DADS) which required intubation and ventilator support. You completed 5 days of IVIG. You are prescribed Triology BIPAP. Please follow-up with Dr. moore. you also were found to have pulmonary embolism(blood clotting in the lung). Please continue pradaxa (blood thinner). Please discuss with primary doctor regarding duration of anticoagulation. Please follow-up with PCP to complete cancer screening. Follow-up plan Please follow-up with PCP for completion of cancer screening and neurologist Dr Moore for your weakness/demyelinating nerve disease. Follow-up with PCP in: 1 week (with Navya Domingo ) Provider: Kj Moore MD Follow-up in: 2 weeks Wiliam Charles MD Sep 11, 2016 09:13
[2016-09-11] MEDS ORDERED: DABI150C PO ×2 (09:14→10:33)
--- NOTE | 2016-09-11 11:13 | PCM.DC.MED ---
Discharge Summary Date of Service Sep 11, 2016 Dates of Hospitalization Date of Hospital Admission Sep 04, 2016 at 15:12 Date of Discharge: Sep 11, 2016 Providers: Admitting Physician: Emanuel Flores MD Primary Care Physician: Nopjakob Attending Physician: Emanuel Flores MD Diagnosis at Time of Discharge Diagnosis at Time of Discharge #. Pulmonary embolism,acute, Active - CTA chest PE on a branch in the right upper lobe vessel, likely and unprovoked embolism - CT abdomen and pelvis ordered to r/o occult malignancy, showed thickening of colon, stomach and uterine lining. Radiology recommends upper and lower endoscopy, and transvaginal ultrasound.consulted GI - Transvaginal Ultrasound ordered, limited exam due to fullness of bladder and active diarrhea during exam, thickened for a postmenopausal woman Recommend outpatient SPINDLE SANDER followup - Treated with heparin drip. started Pradaxa . 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 - Dr. Moore follows in outpatient. - Completed 5 day course of IVIG . Please follow-up with Dr. Moore #.Altered mental status, present on admission, improved #. Acute on Chronic hypoxic and hypercapnic respiratory failure, present on admission, active - please continue using trilogy #. Severe protein/caloric malnutrition, present on admission, active. # Major depression with anxiety present on admission, active. -Please continue Home regimen of venlafaxine and clonazepam Consultations neurology Dr Moore pulmonology Dr Purcell ID Dr Cabrera Procedures XRay, CTs & MRIs X-RAY CHEST ONE VIEW, PORTABLE IMPRESSION: 1. Medial left basilar atelectasis versus aspiration or pneumonia. Correlate clinically. Dictated by: Deandre Russell RRA Interpreted: Eileen Starkey MD on 09/05/2016 at 8 :41 Transcribed by: MARIA FERNANDA on 09/05/2016 at 8:43 Approved by: Eileen Starkey MD, PhD on 09/05/2016 at 17:04 CT BRAIN WITHOUT CONTRAST IMPRESSION: No acute process. Dictated by: James Ibarra M.D. on 09/04/2016 at 14:03 Approved by: James Ibarra M.D. on 09/04/2016 at 14:04 X-RAY CHEST ONE VIEW, PORTABLE IMPRESSION: Right medial lung base pneumonia. Follow up plain films of the chest are recommended to ensure resolution, and to exclude underlying or central malignancy. Dictated by: James Ibarra M.D. on 09/04/2016 at 13:27 Approved by: James Ibarra M.D. on 09/04/2016 at 13:28 CT CHEST IMPRESSION: 1. Exam is positive for pulmonary embolic disease, showing low clot volume at a branch in the right upper lobe vessel. No additional emboli seen. 2. Posterior right lower lobe consolidation suspect for pneumonia, aspiration or infarction. Small consolidation in the left lower lobe could be atelectatic, scar tissue or inflammatory process. 3. Endotracheal and nasogastric tubes appear in position 4. Cholelithiasis. 5. Bilateral augmentation implants. 6. Old fractures left eighth and ninth posterior ribs. Findings are concordant with the preliminary report Dictated by: Raymond Almaraz M.D. on 09/06/2016 at 8:27 Approved by: Raymond Almaraz M.D. on 09/06/2016 at 8:49 CT ABDOMEN IMPRESSION: 1. Bibasilar lung consolidation compatible with atelectasis, pneumonia or aspiration. Please correlate with clinical and laboratory data. 2. Trace bilateral pleural effusion. 3. Circumferential wall thickening involving the right colon which could be due to nondistention versus mucosal based mass. Recommend colonoscopy for further evaluation. 4. Large amount of stool in the rectum. Please correlate with clinical findings to exclude obstipation. 5. Thickening of the endometrium of the uterus. Recommend pelvic ultrasound for definitive characterization. 6. Focal wall thickening involving the posterior margin of the proximal stomach. Neoplastic process cannot be excluded recommend endoscopy for further evaluation. 7. Cholelithiasis. Dictated by: Eileen Starkey MD, PhD on 09/07/2016 at 18:07 Approved by: Eileen Starkey MD, PhD on 09/07/2016 at 18:13 Invasive Procedures Endoscopy unremarkable Other Diagnostics DateTimeAnalyzed 14:05:00 -_ pH ____7.479 - 7.350 7.450 pCO2 ___45.0__ -mmHg 35.0 45.0 pO2 ___84.7__ -mmHg 69.0 116 HCO3- ___33.1__ -mmol/L 22.0 26.0 ABE ____8.7__ -mmol/L -2.0 2.0 Brief History Gastroenterology Consult Note Patient is a 66-year-old female with a history of chronic neuromuscular demyelinating polyneuropathy treated in the past with IVIG, with most recent IVIG treatment on 08/31 who was hospitalized for increasing confusion while at [facility]. Her respiratory status rapidly declined during hospitalization and patient was subsequently intubated. She is currently being treated for acute respiratory failure, s/p intubation and extubation on 09/06/16 , severe malnutrition, and pulmonary embolism. She was worked up for an underlying cause behind the pulmonary embolism, and a CT of the abd/pelvis with contrast showed circumferential wall thickening involving the right colon, focal wall thickening involving the posterior margin of the proximal stomach, and thickening of the endometrium of the uterus, as well as cholelithiasis. She reports chronic nausea and decreased appetite, but denies vomiting or diarrhea, hematemesis or hematochezia. She denies fevers, chills, or night sweats. She reports "pain everywhere", but denies specific abdominal or chest pain. She reports occasional alcohol use, denies smoking, denies Tylenol use. She reports frequent NSAID use (ibuprofen). She does not remember ever having an EGD or colonoscopy. She reports her mother was diagnosed with colon cancer in her 50s. She denies family history of Crohn's, UC, or celiac disease. She states she has a history of a gastric ulcer in the past. Hospital Course Karen Watters is a 66-year-old female with a history of chronic neuromuscular demyelinating polyneuropathy with most recent IVIG treatment on 08/31 who was brought in by EMS for increasing confusion. Patient's respiratory status rapidly declined during hospitalization and patient was subsequently intubated. Currently being treated for respiratory failure Hospital Day 6 1. Pulmonary embolism,acute, Active - CTA chest PE on a branch in the right upper lobe vessel, likely provoked embolism. Patient on hormone replacement and not mobile due neuropathy. Patient is reluctant to stop hormone replacement. Advised to discuss with her primary physician - CT abdomen and pelvis ordered to r/o occult malignancy, showed thickening of colon, stomach and uterine lining. Radiology recommends upper and lower endoscopy, and transvaginal ultrasound.consulted GI - Transvaginal Ultrasound ordered, limited exam due to fullness of bladder and active diarrhea during exam, thickened for a postmenopausal woman Recommend outpatient SPINDLE SANDER followup - Treated with heparin drip started 09/05/16. Started on Pradaxa. Duration of anticoagulation to be decided by PCP after cancer screening. 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 - Dr. Moore follows in outpatient. - Completed IVIG 0.4 mg/kg x5 days per Dr. Moore's recommendations. . Stopped 2 /[address] findings, not present on admission, chronicity unknown. - CT abdomen ordered to r/o paraneoplastic syndrome - CT abdomen and pelvis ordered to r/o occult malignancy, showed thickening of colon, stomach and uterine lining. Radiology recommends upper and lower endoscopy, and transvaginal ultrasound - Transvaginal ultrasound ordered, see above - GI consulted. Upper endoscopy, unremarkable. Recommend outpatient lower endoscopy follow up. -Needs age-appropriate cancer screening outpatient- 5.Altered mental status, present on admission, improved - CT brain negative for acute process. - Patient's baseline reported to be altered with paranoid delusions= - Neurology consulted. Appreciate time and expertise. 6. Acute on Chronic hypoxic and hypercapnic respiratory failure, present on admission, active - Patient has reported to have desaturations overnight and required use of BiPAP. Upon review of patient's X-rays, recent blood work, medical history patient likely has chronic respiratory failure due to Distal acquired demyelinating symmetric neuropathy (DADS). Patient requires a non-invasive mechanical ventilator to prevent life threatening exacerbations and future hospital readmissions due to chronic respiratory failure. - Trilogy ordered 7 Pressure ulcers, present on admission, active. - Continue Wound care 8. Severe protein/caloric malnutrition, present on admission, active. -Continue diet as tolerated 9. Major depression with anxiety present on admission, active. -Continue Home regimen of venlafaxine and clonazepam continued. 11. Initially suspected healthcare associated pneumonia, rulled out - Chest xray as above. - Vancomycin, Zosyn, and Azithromycin started on 09/04.dcd 09/06 - Procalcitonin 0.05. 12. Initially suspected Urinary tract infection, present on admission, active. - UA with bacteria, leukocyte esterase, and WBC present. - Urine culture mixed elaine . - Antibiotics completed as above. Discussed plan of care with patient's brother, brother and sister plan on being present tomorrow for family meeting and to discuss plans for consent. Disposition: Discharge back to [facility] .Trioloy needs to be arranged /delivered.continue PT at SNF Patient examined on day of discharge. Condition on discharge stable GI Prophylaxis: H2 coral VTE Prophylaxis: Sub-Q Heparin (Unfractionated), SCDs VTE Mechanical Devices: Intermittant Pneumatic CD Resuscitation Status: CPR: Attempt Resuscitation Exam Vital Signs (Last) Date Time Temp Pulse Resp B/P Pulse Ox O2 Delivery O2 Flow Rate FiO2 09/11/16 10:09 109 09/11/16 08:35 36 96 50 09/11/16 07:25 CPAP/BIPAP 09/11/16 07:20 36.4 123/85 09/10/16 23:34 2.00 Exam GEN: Cachectic, anxious, Alert and oriented to person, place and time HEENT: Pupils are equal and reactive to light bilaterally, mucous membranes are dry, CV: Regular rate and rhythm with a normal S1 and S2 Respiratory: Clear to auscultation bilaterally, no wheezes, rales, rhonchi, tolerating BiPAP GI: scaphoid, soft, normal bowel sounds EXT: No edema. thin extremities, strength 4/5 in upper extremities bilaterally, lower extremities 2/5. Skin: No signs of bruising, right sided firm red lesion on the gluteal max most likely consistent with irritation from not moving Neuro: Follows command to squeeze hand. Unable to wiggle toes on command, able to flex hips with assistance. power 5/5 on upper extremities .3/5 on RLE,2/5 on LLE Psych: anxious, Alert and oriented to person, place and time, paranoid delusions Test 09/04/16 12:45 09/04/16 13:00 09/04/16 15:22 09/05/16 02:48 Urine Legionella pneumophilia Ag Negative (Negative) Urine Color Straw (YELLOW) Urine Appearance Hazy (CLEAR,HAZY) Urine pH 7.0 (5.0-8.0) Urine Specific [place] 1.020 (1.003-1.035) Urine Protein Negativemg/dL (NEG,TRACE) Urine Glucose (UA) Negativemg/dL (NEGATIVE) Urine Ketones 80mg/dL (NEGATIVE) Urine Occult Blood Moderate (NEGATIVE) Urine Nitrite Positive (NEGATIVE) Urine Bilirubin Negative (NEGATIVE) Urine Urobilinogen Normalmg/dL (NORMAL) Urine Leukocyte Esterase Small (NEGATIVE) Urine RBC 3-10/hpf (0-2) Urine WBC 6-10/hpf (0-5) Urine Epithelial Cells Few/hpf (NONE-MOD) Urine Crystals Amorphous urates (NONE Urine Bacteria Many/hpf (NONE-FEW) Urine Hyaline Casts None/lpf (NONE) Urine Granular Casts Occasional (NONE SEEN) Urine Waxy Casts None seen (NONE SEEN) Urine Red Blood Cell Casts None seen (NONE SEEN) Urine White Blood Cell Casts None seen (NONE SEEN) Urine Mucus None seen (None Seen) Urine Trichomonas None seen (NONE SEEN) Urine Yeast None (NONE SEEN) Urinalysis Comment None Urine Culture Reflexed Indicated Ammonia 78ug/dL (18-53) Hold Rivera Top Tube Received (Received) Alcohol, Quantitative < 10mg/dL (0-10) Total Bilirubin 0.4mg/dL (0.0-1.2) Aspartate Amino Transf (AST/SGOT) 27U/L (0-50) Alanine Aminotransferase (ALT/SGPT) 19U/L (0-32) Alkaline Phosphatase 62U/L (25-165) Total Protein 6.2g/dL (6.4-8.4) Albumin 3.1g/dL (3.4-5.0) Test 09/05/16 04:05 09/06/16 05:30 09/07/16 05:50 09/08/16 05:50 Lactic Acid Level 1.8mmol/L (0.4-2.0) Procalcitonin 0.06ng/mL (See Comment) Magnesium Level 2.1mg/dL (1.6-2.6) Triglycerides Level 102mg/dL (0-149) Phosphorus Level 3.5mg/dL (2.5-4.9) Test 09/08/16 05:59 09/09/16 23:05 09/11/16 02:25 Neutrophils (%) (Auto) 63.6% (40-74) Lymphocytes (%) (Auto) 26.4% (14-46) Monocytes (%) (Auto) 7.7% (4-12) Eosinophils (%) (Auto) 1.7% (0-5) Basophils (%) (Auto) 0.2% (0-3) Activated Partial Thromboplast Time 60.9sec (22.8-33.0) White Blood Count 5.8th/mm3 (3.8-10.1) Red Blood Count 3.97mil/mm3 (3.90-5.20) Hemoglobin 11.9g/dL (12.0-15.6) Hematocrit 36.7% (35.0-46.0) Mean Corpuscular Volume 92.4fL (81-100) Mean Corpuscular Hemoglobin 30.0pg (27.0-35.0) Mean Corpuscular Hemoglobin Concent 32.4% (32.0-37.0) Red Cell Distribution Width 13.6% (12.3-15.4) Platelet Count 260bil/L (150-400) Sodium Level 137mEq/L (134-144) Potassium Level 4.1mEq/L (3.5-5.2) Chloride Level 98mEq/L (97-108) Carbon Dioxide Level 30mmol/L (18-29) Blood Urea Nitrogen 11mg/dL (8-27) Creatinine < 0.30mg/dL (0.57-1.00) Estimat Glomerular Filtration Rate 317mL/min (>59) Glucose Level 93mg/dL (60-99) Calcium Level 8.9mg/dL (8.5-10.1) Microbiology Results MRSA positive (screen and sputum) Discharge Medications Discharge Medications Cholecalciferol (Vitamin D3) (Vitamin D) 1,000 Unit Capsule 1,000 UNIT PO DAILY (Reported) Dabluisaatran Etexilate Mesylate (Pradaxa) 150 Mg Capsule 150 MG PO BID Prescribed by: WILIAM CHARLES MD Estrogens Conj/Medroxyprog 0.625-2.5 mg (Prempro 0.625-2.5 mg) 1 Each Tablet 1 TABLET PO DAILY (Reported) Melatonin (Melatonin) 5 Mg Tablet 20 MG PO HS (Reported) Multivitamin with Minerals (Myvitalife) 1 Each Capsule 1 EACH PO DAILY (Reported ) Oxycodone HCl/Acetaminophen (Endocet 10-325 mg Tablet) 1 Each Tablet 1 EACH PO QID (Reported) Tamsulosin (Flomax) 0.4 Mg Capsule 0.4 MG PO DAILY (Reported) Trazodone (Trazodone) 50 Mg Tablet 50 MG PO HS (Reported) Venlafaxine (Venlafaxine) 75 Mg Tablet 150 MG PO BID (Reported) Zolpidem (Zolpidem) 10 Mg Tablet 5-10 MG PO HS (Reported) As needed ([diphenHYDramine]) 50 MG CAPSULE 50 MG PO HS PRN PRN Insomnia Prescribed by: WILIAM CHARLES MD Clonazepam (Clonazepam) 1 Mg Tablet 0.5-1 MG PO BID PRN PRN For Anxiety ( Reported) Omeprazole (Omeprazole) 40 Mg Capsule.dr 40 MG PO BID PRN PRN For Dyspepsia or Heartburn (Reported) Miscellaneous Medications Acetaminophen (Acetaminophen) 325 Mg Capsule 325 MG PO (Reported) Followup Plan Disposition: SNF Follow-up plan Please follow-up with PCP for completion of cancer screening and neurologist Dr Moore for your weakness/demyelinating nerve disease. Discharge Diet: Low fat, Low Sodium Discharge Activity: Limited until seen by PCP, Other (continue physical therapy at long term facility) Patient Instructions You were hospitalized due to acute hypoxic and hypercapnic respiratory failure due to Distal acquired demyelinating symmetric neuropathy (DADS) which required intubation and ventilator support. You completed 5 days of IVIG. You are prescribed Triology BIPAP. Please follow-up with Dr. moore. you also were found to have pulmonary embolism(blood clotting in the lung). Please continue pradaxa (blood thinner). Please discuss with primary doctor regarding duration of anticoagulation. Please follow-up with PCP to complete cancer screening. Follow-up with PCP in: 1 week (with Navya Domingo ) Provider: Kj Moore MD Follow-up in: 2 weeks Time spent > 35 minutes coordinating discharge copies to: Wiliam Tariq MD Sep 11, 2016 11:13 pradaxa (blood thinner). Please discuss with primary doctor regarding duration of anticoagulation. Please follow-up with PCP to complete cancer screening. Follow-up with PCP in: 1 week (with Navya Domingo ) Provider: Kj Moore MD Follow-up in: 2 weeks Wiliam Charles MD Sep 11, 2016 11:13
--- NOTE | 2016-09-11 14:34 | NUR ---
Social Work: Discharge tray worker spoke with patient and notified her that [facility] is able to accept her back today. Patient voiced understanding and was in agreement with transferring back to [facility] SW notified respiratory zack patient's transport was scheduled for 3pm and they will notify [facility] to meet the patient at the facility with the trilogy. Patient being tranferred via BLS. Alison Hardy, DIAMOND, ACM
--- NOTE | 2016-09-11 15:12 | NUR ---
Discharge note Patient a/o x 3, c/o gen pain, Oyxcodone given with good effect. Patient on bipap most of the shift and O2 @ 3 L nc for meals. Patient taking diet well. VSS, tele SR-ST. Tele and IV SL x 2 removed intact. Pateint transported [facility] with all belongings. Report called to [facility].
--- NOTE | 2016-09-12 12:19 | ENDO ---
[address] [address] ENDOSCOPY PROCEDURE PATIENT: CAPO THOMPSON : 1950 MR#: [id number] ADMIT: 09/04/2016 JOB ID: [id number] DATE: 09/10/2016 PROCEDURE: Colonoscopy. INDICATION: Abnormal CT scan, suggestive of thickening in the right colon, and with the patient's recent diagnosis of PE, there is concern for possible underlying malignancy and, therefore, colonoscopy is being pursued today. Please see Dr. Deandre Jeffers's anesthesia report for details regarding ASA classification, Mallampati score and medications. INSTRUMENT USED: Was a PCF H 180 AL. PREPARATION QUALITY: Was poor. PROCEDURE DETAILS: After informed consent was obtained, the patient was brought into the GI suite, where she was placed on oxygen via nasal cannula and monitored with continuous pulse oximeter, telemetry and blood pressure monitoring. A time-out was performed. Then, she was placed in the left lateral decubitus position and medications were administered for sedation. Digital rectal examination was performed which was unremarkable. The colonoscope was then inserted into the rectum and advanced under direct visualization to the cecum, which was identified by the presence of the appendiceal orifice and ileocecal valve. Once the cecum was reached, the colonoscope was withdrawn back into the rectum as the mucosa and lumen were examined. In the rectum, retroflexion was performed. Following retroflexion, remaining air in the rectum was suctioned, and the procedure was completed. FINDINGS: 1. There was a thin layer of greenish brown stool coating the entire colon. Using irrigation we were able to wash off large portions of stool. No obvious mass lesions were seen, however, smaller polyps may have been missed. The right colon was copiously irrigated with water and I believe the views were adequate of the right colon. 2. Retroflexed views in the rectum were unremarkable. IMPRESSION: Poor prep. No obvious mass lesion. RECOMMENDATIONS: Proceed to the EGD. COMPLICATIONS: None. ESTIMATED BLOOD LOSS: 0. PROCEDURE PERFORMED: Esophagogastroduodenoscopy. INDICATION: Abnormal gastric wall thickening. Please see above for ASA classification, Mallampati score and medications. INSTRUMENT USED: GIF H 180 J. PROCEDURE DETAILS: After completion of the colon examination, a bite block was placed and then the standard EGD scope was inserted through the bite block and advanced to the proximal portion of the duodenum. The stomach had a U shape, and as we entered through the pylorus, I could see the cardia as well as fundus. As there was significant looping of the scope, I was unable to advance the scope beyond the duodenal bulb. FINDINGS: 1. Normal-appearing duodenal bulb. 2. The first and second portion of the duodenum were not examined. 3. Normal-appearing pylorus. In the antrum and body of the stomach, there was erythema suggestive of gastritis. Biopsies were not obtained as the patient is currently off heparin and heparin is expected to be resumed for patient's PE. 4. Normal appearing cardia and fundus. 5. Normal appearing GE junction. 6. Normal appearing esophagus. IMPRESSION: 1. Mild gastritis. 2. U-shaped stomach. RECOMMENDATIONS: 1. Okay to restart heparin. 2. Start a clear liquid diet and advance as tolerated. COMPLICATIONS: None. ESTIMATED BLOOD LOSS: 0.
== END 2016-09-11 15:00 | DRG 208 ==
LOC: SED 12:21 → PCC 15:12 → CCU 23:28 → PCC 09-07 11:06
PROVIDERS: ADMIT Internal Medicine; ATTEND Neuromusculoskeletal Medicine & OMM
PROC: 5A1945Z Respiratory Ventilation, 24-96 Consecutive Hours (ICD-10-PCS; principal; 2016-09-04)
PROC: 0BH17EZ Insertion of Endotracheal Airway into Trachea, Via Natural or Artificial Opening (ICD-10-PCS; 2016-09-04)
PROC: 4A033R1 Measurement of Arterial Saturation, Peripheral, Percutaneous Approach (ICD-10-PCS; 2016-09-04)
PROC: 0DJD8ZZ Inspection of Lower Intestinal Tract, Via Natural or Artificial Opening Endoscopic (ICD-10-PCS; 2016-09-10)
PROC: 0DJ08ZZ Inspection of Upper Intestinal Tract, Via Natural or Artificial Opening Endoscopic (ICD-10-PCS; 2016-09-10)
DX: I26.99 Other pulmonary embolism without acute cor pulmonale (principal); J96.01 Acute respiratory failure with hypoxia; E43 Unspecified severe protein-calorie malnutrition; G93.40 Encephalopathy, unspecified; G61.81 Chronic inflammatory demyelinating polyneuritis; E87.2 Acidosis; Z68.1 Body mass index [BMI] 19.9 or less, adult; E87.3 Alkalosis; Z91.81 History of falling; F32.9 Major depressive disorder, single episode, unspecified; F41.9 Anxiety disorder, unspecified; E87.6 Hypokalemia; E83.39 Other disorders of phosphorus metabolism; R41.82 Altered mental status, unspecified; L89.151 Pressure ulcer of sacral region, stage 1; R93.3 Abnormal findings on diagnostic imaging of other parts of digestive tract